=== PATIENT | male | born 1975 | race Caucasian/White ===

== ENCOUNTER → 2018-07-14 09:24 | Outpatient (CLI) | payer OTHER, SELFPAY ==
--- NOTE | 2018-07-14 09:30 | RAD_ITS ---
STUDY: X-RAY - LEFT HIP REASON FOR EXAM: Male, 43 years old. Hip pain TECHNIQUE: 2 views of the hip. COMPARISON: None. FINDINGS: The sacroiliac and right hip joints are normal. There is narrowing of the superior compartment joint with buttressing of the femoral neck. No acute fractures RAD/HIP, UNI W/ Pelvis 2-3 Views IMPRESSION: Degenerative changes of the superior compartment of the left hip joint. No fractures Electronically Signed: Nicholas Chapman MD at 3:22 EST Tel , Service support ,
[2018-07-14 10:41] LABS: Absolute Lymphocyte Count 1.03 X10^3/ul (0.83-4.51); Basophil# 0.02 X10^3/uL; Basophil% 0.4 % (0-1); Eosinophil# 0.04 X10^3/uL; Eosinophils% 0.7 % (0-5); Hematocrit 48.1 % (40-54); Hemoglobin 16.1 g/dl (13.0-16.5); Lymphocyte # 1.03 X10^3/ul (4.0); Lymphocyte % 18.9 % (19-41); Mean Corp Hgb Conc 33.5 g/gl (32-36); Mean Corpuscular Hgb 31.6 pg (27.0-32.0); Mean Corpuscular Volume 94.5 fL (80-94); Mean Platelet Vol. 9.5 fl (6.2-12.0); Monocyte% 7.3 % (0-10); Neutrophil # 3.96 X10^3/uL (2.7-7.7); Neutrophil % 72.5 % (47-70); Platelet Count 229 K/mm3 (150-450); RBC Distribution Width CV 13.1 % (11.6-14.6); RBC Distribution Width SD 45.6 fl (35.1-43.9); Red Blood Count 5.09 M/mm3 (4.6-6.2); White Blood Count 5.5 K/mm3 (4.4-11.0)
[2018-07-14 10:42] LABS: POSITIVE COUNT NO; POSITIVE DIFFERENTIAL NO; POSITIVE MORPHOLOGY NO
[2018-07-14 11:27] LABS: ALB/GLOB Ratio 1.2 RATIO (0.9-2.4); AST(SGOT) 16 U/L (15-37); Alanine Aminotransfer ALT/SGPT 25 U/L (16-61); Albumin, Serum 4.3 g/dL (3.2-5.0); Alkaline Phosphatase 66 U/L (45-117); BUN 9 mg/dL (7-18); BUN/Creat Ratio 9.6 RATIO (10-20); Calcium,Total 9.2 mg/dL (8.5-10.1); Cholesterol 190 mg/dL (200); Creatinine, Serum 0.94 mg/dL (0.70-1.30); EST Glomerular Filtration Rate 92 mL/min (>60); Est Glom Filt Rate - Afr Amer 111 mL/min (>60); Globulin 3.6 g/dL (2.2-4.2); Glucose 77 mg/dL (74-106); Protein, Total 7.9 g/dL (6.4-8.2); Triglycerides 83 mg/dL
[2018-07-14 11:28] LABS: Anion Gap 8 (5-15); Chloride 106 mmol/L (98-107); High Density Lipoprotein 62 mg/dL; Potassium 4.1 mmol/L (3.5-5.1); Sodium Level 139 mmol/L (136-145); Very Low Density Lipoprotein 17 mg/dL (5-40)
[2018-07-17 09:06] LABS: Testosterone, Free 6.76 ng/dL (5.00-21.00)
[2018-07-17 11:05] LABS: Testosterone, % Free 1.75 % (1.50-4.20); Testosterone, Total 386 ng/dL (264-916)
--- OUTSIDE RECORDS SUMMARY | 2018-09-17 16:33 | XMS RPT_ITS ---
:1975 Author Organization OHIP Care Team Providers Name Role Phone Nelson, Burak Attending Unavailable Burak Damon Referring Unavailable Burak Damon Primary Care Unavailable PROBLEMS PROBLEMS DATE TYPE CONDITION / CODE ATTENDING STATUS SOURCE 07/18/2018 Unknown M25.552 - Pain Bruak Damon Active [place] in left hip / Community M25.552(ICD-10) Hospital Repository PROCEDURES PROCEDURES No Procedure Records FoundRESULTS RESULTS CBC W/DIFF, AUTOMATED Collected: 07/14/2018 Status: F Source: NATALIA 9:32 AM [facility] REPOSITORY TYPE CODE TESTS RESULT OUT OF RANGE REFERENCE UNITS LAB L100.1000 4.4-11.0 K/mm3 Normal WBC 5.5 LAB L100.1200 4.6-6.2 M/mm3 Normal RBC 5.09 LAB L100.1300 13.0-16.5 g/dl Normal HGB 16.1 LAB L100.1400 40-54 % Normal HCT 48.1 LAB L100.1500 80-94 fL High MCV 94.5 LAB L100.1600 27.0-32.0 pg Normal MCH 31.6 LAB L100.1700 32-36 g/gl Normal MCHC 33.5 LAB L100.1810 11.6-14.6 % Normal RDW CV 13.1 LAB L100.1820 35.1-43.9 fl High RDW SD 45.6 LAB L100.1900 150-450 K/mm3 Normal PLT 229 LAB L100.2000 6.2-12.0 fl Normal MPV 9.5 LAB L100.2100 47-70 % High NEUT% 72.5 LAB L100.2200 19-41 % Low LY% 18.9 LAB L100.2300 0-10 % Normal MONO% 7.3 LAB L100.2400 0-5 % Normal EO% 0.7 LAB L100.2500 0-1 % Normal BASO% 0.4 LAB L100.2550 0.0-0.9 % Normal IM GRAN % 0.200 Result Comment: IG% - Immature Granulocytes (promyelocytes, myelocytes and metamyelocytes) > 1% indicates that a LEFT SHIFT is Present. LAB L100.2620 2.0-7.7 X10 3/uL Normal Absolute Neut 4.0 LAB L100.2720 0.83-4.51 X10 3/ul Normal Absolute Lymph 1.03 Performed By: #### L100.0100 #### [facility] [address] [place], [place], [address] COMPREHENSIVE METABOLIC Collected: 07/14/2018 Status: F Source: [place] 9:32 AM [facility] REPOSITORY TYPE CODE TESTS RESULT OUT OF RANGE REFERENCE UNITS LAB L501.0100 74-106 mg/dL Normal GLU 77 Result Comment: Please note revised GLUCOSE reference range effective 2017. LAB L501.1000 7-18 mg/dL Normal BUN 9 LAB L501.1100 0.70-1.30 mg/dL Normal CREAT,SERUM 0.94 Result Comment: The validity of the calculated GFR AND GFRAA in patients over 70 years has not been determined. Clinical correlation is essential. LAB L501.1110 >60 mL/min Normal EST GFR 92 Result Comment: Non- GFR Calc LAB L501.1115 >60 mL/min Normal EST GFR - AA 111 Result Comment: GFR Calc LAB L501.1300 10-20 RATIO Low BUN/CRE 9.6 LAB L501.1500 6.4-8.2 g/dL Normal T PROT 7.9 LAB L501.1800 3.2-5.0 g/dL Normal ALB 4.3 LAB L501.1950 2.2-4.2 g/dL Normal GLOB 3.6 LAB L501.2000 0.9-2.4 RATIO Normal A/G 1.2 LAB L501.2200 8.5-10.1 mg/dL Normal CA 9.2 LAB L501.4100 15-37 U/L Normal AST 16 LAB L501.4305 45-117 U/L Normal ALK P 66 LAB L501.4405 16-61 U/L Normal ALT 25 LAB L501.4600 0.20-1.00 mg/dL Normal T BILI 0.40 LAB L501.5300 136-145 mmol/L Normal NA 139 LAB L501.5600 3.5-5.1 mmol/L Normal K 4.1 LAB L501.5900 98-107 mmol/L Normal CL 106 LAB L501.6100 21.0-32.0 mmol/L Normal CO2 25.0 LAB L501.6200 5-15 Normal GAP 8 Performed By: #### L500.4050, L500.4100 #### [facility] [address] [place], [place], [id number] LIPID PROFILE Collected: 07/14/2018 Status: F Source: [place] 9:32 AM [facility] REPOSITORY TYPE CODE TESTS RESULT OUT OF RANGE REFERENCE UNITS LAB L501.4900 200 mg/dL Normal CHOL 190 Result Comment: <200 mg/dL Desirable 200-240 mg/dL Borderline >240 mg/dL High Risk LAB L501.5000 mg/dL Normal TRIG 83 Result Comment: The drugs N-Acetylcysteine and Metamizole may falsely depress this assay. Serum Triglycerides Reference Interval Normal <150 mg/dL Borderline high 150 - 199 mg/dL High 200 - 499 mg/dL Very High > or = 500 mg/dL LAB L501.6400 mg/dL Normal HDL 62 Result Comment: The drugs N-Acetylcysteine and Metamizole may falsely depress this assay. Reference Range HDL <40 mg/dL Low HDL Cholesterol HDL >or= 60 mg/dL High HDL Cholesterol LAB L501.6500 0-130 mg/dL Normal LDL 111 LAB L501.6600 5-40 mg/dL Normal VLDL 17 Performed By: #### L500.4050, L500.4100 #### [facility] [address] [place], [place], [id number] TESTOSTERONE, TOTAL / Collected: 07/14/2018 Status: F Source: NATALIA FREE 9:32 AM [facility] REPOSITORY Order Comment: Has Patient had X-rays with Contrast this admission? N TYPE CODE TESTS RESULT OUT OF RANGE REFERENCE UNITS LAB L3100.5320 264-916 ng/dL Normal 386 TESTOSTER,TO ASHLEY Result Comment: Adult male reference interval is based on a population of healthy nonobese males (BMI <30) between 19 and 39 years old. Roldan et.al. JCEM 2017,102;6109-6944. PMID: [id number]. LAB L3100.5340 5.00-21.00 ng/dL TESTOSTER,FREE Normal 6.76 LAB L3100.5360 1.50-4.20 % TESTOSTER %FREE Normal 1.75 Result Comment: Performed at: - [facility] [address] [id number] Panel Beater: Osmani Shah PhD, Phone: [phone] Performed at: - [facility] [address] [id number] Panel Beater: Deedee Beckett MD, Phone: [phone] Performed By: #### L3100.5310 #### [facility] (refer to report for specific site) refer to report for address and phone number HIP, UNI W/ PELVIS Observed: 07/14/2018 Status: F Source: NATALIA 2-3 VIEWS 9:30 AM [facility] REPOSITORY [facility] [address] [place] [id number] HIP, UNI W/ Pelvis 2-3 Views MR#: [id number] Acct: [id number] Name: NIRU GUZMAN Rep #: [id number] : 1975 M 43 From: Nicholas Chapman MD PCP: Burak Damon DO Status: REG CLI Study: HIP, UNI W/ Pelvis 2-3 Views Date of Exam: 07/14/18 Exam# [id number] Ordering Dr: Burak Damon DO STUDY: X-RAY - LEFT HIP REASON FOR EXAM: Male, 43 years old. Hip pain TECHNIQUE: 2 views of the hip. COMPARISON: None. FINDINGS: The sacroiliac and right hip joints are normal. There is narrowing of the superior compartment joint with buttressing of the femoral neck. No acute fractures RAD/HIP, UNI W/ Pelvis 2-3 Views IMPRESSION: Degenerative changes of the superior compartment of the left hip joint. 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 ALLERGIES ALLERGIES No Allergies Records FoundENCOUNTERS ENCOUNTERS ADMIT/DISCHARGE ACCOUNT ADMITTING ENCOUNTER LOCATION SOURCE NUMBER CLASS 07/14/2018 [id number] Ambulatory Natalia Natalia 7 [facility] ing:MTLAB Repository PAYERS PAYERS ENCOUNTER GUARANTOR PAYER SUBSCRIBER SOURCE 07/14/2018 NIRU SCHWARTZ Primary Insurance:F F [facility] [address] GU[address] [facility]: [facility] [id number] Number: Repository [phone]: [phone] [phone] () Date:[id number] [address], [place] [address]OL: CHECK WEBSITE 07/14/2018 Secondary NOT GIVENUNK Natalia Insurance:SELF PAY [facility] Number: Effective Repository Date:2018-07-14
== END ==
PROVIDERS: Family Provider Family Medicine; PCP Family Medicine; Referring Provider Family Medicine; Visit Provider Family Medicine
DX: M25.552 Pain in left hip (principal); I10 Essential (primary) hypertension; R79.89 Other specified abnormal findings of blood chemistry; K21.9 Gastro-esophageal reflux disease without esophagitis
CPT/HCPCS: 36415; 73502; 80053; 80061; 84402; 84403; 85025

== ENCOUNTER → 2019-08-23 06:36 | Outpatient (CLI) | payer OTHER, SELFPAY ==
[2019-08-23 07:37] LABS: Absolute Lymphocyte Count 0.95 X10^3/uL (0.83-4.51); Absolute Neutrophil Count 2.6 X10^3/uL (2.0-7.7); Basophil# 0.03 X10^3/uL; Basophil% 0.7 % (0-1); Eosinophil# 0.05 X10^3/uL; Eosinophils% 1.2 % (0-5); Hematocrit 48.2 % (40-54); Hemoglobin 16.5 g/dL (13.0-16.5); Lymphocyte # 0.95 X10^3/ul (4.0); Lymphocyte % 23.7 % (19-41); Mean Corp Hgb Conc 34.2 g/dL (32-36); Mean Corpuscular Hgb 31.9 pg (27.0-32.0); Mean Corpuscular Volume 93.1 fL (80-94); Monocyte# 0.41 X10^3/uL; Monocyte% 10.2 % (0-10); NRBC Flagged by Analyzer 0 % (0-5); Neutrophil # 2.56 X10^3/uL (2.7-7.7); Platelet Count 201 K/mm3 (150-450); RBC Distribution Width CV 12.1 % (11.6-14.6); RBC Distribution Width SD 41.7 fl (35.1-43.9); Red Blood Count 5.18 M/mm3 (4.6-6.2)
[2019-08-23 08:01] LABS: AST(SGOT) 28 U/L (15-37); Alanine Aminotransfer ALT/SGPT 58 U/L (16-61); Albumin, Serum 3.8 g/dL (3.2-5.0); Alkaline Phosphatase 66 U/L (45-117); Anion Gap 5 (5-15); BUN 12 mg/dL (7-18); BUN/Creat Ratio 11.7 RATIO (10-20); Calcium,Total 9.4 mg/dL (8.5-10.1); Chloride 108 mmol/L (98-107); Cholesterol 227 mg/dL (200); Creatinine, Serum 1.03 mg/dL (0.70-1.30); EST Glomerular Filtration Rate 83 mL/min (>60); Est Glom Filt Rate - Afr Amer 100 mL/min (>60); Globulin 3.8 g/dL (2.2-4.2); Glucose 87 mg/dL (74-106); High Density Lipoprotein 55 mg/dL; Potassium 4.1 mmol/L (3.5-5.1); Protein, Total 7.6 g/dL (6.4-8.2); Sodium Level 142 mmol/L (136-145); Triglycerides 92 mg/dL; Very Low Density Lipoprotein 18 mg/dL (5-40)
[2019-08-26 12:29] LABS: Testosterone, Free 14.87 ng/dL (5.00-21.00)
[2019-08-27 13:25] LABS: Testosterone, % Free 3.68 % (1.50-4.20); Testosterone, Total 404 ng/dL (264-916)
== END ==
PROVIDERS: PCP Family Medicine; Referring Provider Family Medicine; Visit Provider Family Medicine
DX: Z00.00 Encounter for general adult medical examination without abnormal findings (principal); R79.89 Other specified abnormal findings of blood chemistry
CPT/HCPCS: 36415; 80053; 80061; 84402; 84403; 85025

== ENCOUNTER → 2019-11-16 09:09 | Outpatient (CLI) | payer OTHER, SELFPAY ==
--- NOTE | 2019-11-16 09:15 | RAD_ITS ---
STUDY: X-RAY - PELVIS AND BILATERAL HIPS REASON FOR EXAM: Male, 44 years old. Bilat hip pain, right worse than left TECHNIQUE: AP view of the pelvis.? 2 views of the right hip, and 2 views of the left hip were obtained. COMPARISON: 07/14/2018 FINDINGS: There is a non-specific bowel gas pattern. Normal visualized soft tissue structures. Normal bilateral iliac wings, sacroiliac joints and visualized sacrum. Normal bilateral superior and inferior pubic rami. Normal pubic symphysis. Normal bilateral ischial tuberosities. Normal visualized right femoral head. Normal right acetabulum. There is mild articular joint space narrowing of the right hip. Normal visualized left femoral head. Normal left acetabulum. There is mild articular joint space narrowing of the left hip. RAD/Hips B/L min 2 views w/ Pelvis IMPRESSION: Mild bilateral hip joint arthrosis Electronically Signed: Rolf Bautista MD at 17:20 EDT , Service support ,
== END ==
PROVIDERS: PCP Family Medicine; Referring Provider Family Medicine; Visit Provider Family Medicine
DX: M16.0 Bilateral primary osteoarthritis of hip (principal); M25.551 Pain in right hip; M25.552 Pain in left hip
CPT/HCPCS: 73521

== ENCOUNTER 2019-11-28 05:49 | Day surgery (SDC) | payer OTHER, SELFPAY ==
[2019-11-28 06:23] VITALS: BP 145/102; PULSE 80; RESP 16; TEMP 36.9; O2SAT 95; BMI 37.8
[2019-11-28] MEDS: Lactated Ringers 1,000 ML 100 ML IV (06:36)
[2019-11-28] MEDS: LORazepam 2 MG/ML Syringe 0.5 MG IV (07:09)
--- NOTE | 2019-11-28 07:30 | RAD_ITS ---
STUDY: X-RAY - PELVIS AND RIGHT HIP REASON FOR EXAM: Male, 44 years old. Right hip injection done in OR TECHNIQUE: 2 coned-down views of the pelvis and hip. COMPARISON: None. FINDINGS: Intraoperative images provided for right hip injection. RAD/Fluoro Guided Needle Placement IMPRESSION: Intraoperative imaging provided for right hip injection. Electronically Signed: Marvin Lopez, at 12:24 EDT , Service support ,
[2019-11-28] MEDS: Bupivacaine Mpf 0.5% 30 ML VIAL (07:33)
[2019-11-28] MEDS: Triamcinolone Acetonide 40 MG/ML Vial (07:33)
--- NOTE | 2019-11-28 07:38 | OP.PCM_ITS ---
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 3 cc of 0.5% Marcaine. 3 cc of 1% lidocaine for local Estimated Blood Loss (mL): 0 Fluids Replaced: 0 Description of Procedure: Patient was brought back to the operating room after marking his right hip in the preoperative area. The pulse was palpated. Fluoroscopy was used to localize the joint and area for needle entry. This area was marked. Timeout was called upon agreed upon the side, the site, the procedure to be performed, patient identity and antibiotics given. At this time the area was prepped in a sterile fashion. Sterile gloves were donned. The previously marked area for needle entry was anesthetized using 1% lidocaine spinal needle was used and directed using live fluoroscopy into the joint. Dye was injected into the joint to verify we were in the joint. Once you have we were in the joint 2 cc of Kenalog and 3 mL of 0.5% Marcaine were injected into the joint. Patient t olerated the procedure well. Live x-ray was used to verify that I had further displaced. Needle was removed. Pressure was held and Band-Aid was placed. Patient was then transferred back to the PACU for recovery. Postoperative plan: Weightbearing as tolerated, activity as tolerated no restrictions. - Complications None - Admit VTE Documentation VTE Present on Admission: No VTE Pharm Prophylaxis ordered?: No Reason prophylaxis not ordered:: Treatment Not Indicated
[2019-11-28 08:17] VITALS: BP 135/98; PULSE 80; RESP 16; TEMP 37.2; O2SAT 95
== END 2019-11-28 08:18 | disposition home or self-care (01) ==
LOC: SDC 05:50 → AC 05:50
PROVIDERS: PCP Family Medicine; Referring Provider Specialist; Visit Provider Specialist
PROC: 3E0U3GC Introduction of Other Therapeutic Substance into Joints, Percutaneous Approach (ICD-10-PCS; CPT 20610; principal; 2019-11-28 07:25)
DX: M16.0 Bilateral primary osteoarthritis of hip (principal)
CPT/HCPCS: 20610; 76000; 77002; J7120

== ENCOUNTER 2020-03-05 07:28 | Day surgery (SDC) | payer OTHER, SELFPAY ==
--- NOTE | 2020-02-22 23:59 | PCM.HP.BLA ---
History and Physical History and Physical [facility] Patient Name: Marcelino Cordova : 1975 From: ANIBAL MENDEZ PA-C DATE OF SURGERY: 03/05/2020 SCHEDULED PROCEDURE: right total hip arthroplasty HISTORY OF PRESENT ILLNESS: Preoperative history and physical exam was performed on February 22, 2020. This is a 44-year-old male who has been having ongoing pain in the right hip since February 2018. Patient does complain of bilateral hip pain but his right is been worse in the left. Pain can reach 10/10 with activities. Pain is increased with stairs, driving, sitting, and walking. Patient's pain is been constant, dull, aching, sharp, stabbing. He has increased pain with activities of daily living including bathing/showering, getting dressed, housework, and leisure activities such as golf. He has fallen and tripped/stumbled secondary to the pain. He has tried rest, ice, elevation with no relief in symptoms. He has attempted a recent intra-articular corticosteroid injection on November 27, 2019 with no relief in symptoms. This only gave him 2 weeks of relief. He has tried home exercise plan with no relief. He has tried director medicare sales with no relief. He has attempted ylfd-[id number]-[id number] medications including Tylenol as well as Mobic with no relief in symptoms. He denies previous surgery on the bilateral hips. He has had to use a cane due to ambulatory pain. Patient states he has also gained weight secondary to do his decreased activity. Patient has medical history pertinent for gastroesophageal reflux disease, and hypertension. Currently denies any chest pain, shortness of breath, fevers chills, recent infections. We are obtaining surgical clearance from the primary care physician. After failing conservative measures and discussing treatment options with Dr. Walt Comer, the patient does wish to proceed with a right total hip arthroplasty. Dr. Burak Damon is his primary care physician and he had a recent EKG today. REVIEW OF SYSTEMS: ROS: Const: Denies anorexia, anxiety, change in appetite, fever and weight change,hard of hearing, and vision problems. CV: Denies chest pain, heart murmur, irregular heartbeat and peripheral vascular disease. Resp: Denies asthma, cough, pneumonia, sleep apnea, shortness of breath, tuberculosis and wheezing. GI: Denies constipation, diarrhea, heartburn, nausea, bloody stools and vomiting, and difficulty swallowing. : Denies incontinence. Musculo: Denies leg swelling, trouble walking and weakness and limp. Skin: Reports tattoo, but denies Raynaud's and history of shingles. Neuro: Denies ambulatory dysfunction, dizziness, numbness/tingling and tremor. Psych: Denies anxiety, depression, insomnia, mental illness and stress. Peter/Lymph: Denies anemia, bleeding/bruising tendency and past transfusion. Reviewed, no changes. PAST MEDICAL HISTORY: Advance Care Plan: No Advance Directives Effective Date: 11/23/2019 PMH: Medical Problems: High Blood Pressure, GERD Accidents: Fracture - Fingers from sports Sports Related Injury - Sprained ankles & broken fingers Surgical Hx: Osteochondroma - 2002 [facility] Arthroscopy - (10/17/2006) R KNEE [facility] MSK Vasectomy Anesthesia Complications: None Assistive Devices: None Reviewed and updated. SOCIAL HISTORY: SH: Marital: .Occupation: [employer].Work Status: Currently Working.Hand Dominance: Right-handed. Personal Habits: Cigarette Use: Never.Smokeless Tobacco: Never Used Smokeless Tobacco.E-Cigarette Use: Never used.Alcohol: Weekly use.Drug Use: Denies Use.Enjoy Exercising: Daily. Reviewed and updated. VITALS: Ht: 69 Wt: 243lb Wt k.225 BMI: 35.9 BP: 137/84 Pulse: 104 Resp: 14 T: 97.3 T: 36.3C ALLERGIES: PCN Penicillin MEDICATIONS: Oxycodone HCL 5 mg 1-2 tab by mouth every 4 hours, Promethazine HCL 12.5 mg 1-2 tablets by mouth every 6 hours, Transderm Scop (1.5 MG) 1 MG/3Days 1 patch behind ear every 3 days, Omeprazole Magnesium 20.6 (20 Base) MG 1 capsule by mouth daily, Meloxicam 15 mg Take 1 tablet by mouth once daily, Lisinopril 20 mg Take 1 tab by mouth once daily, Amlodipine Besylate 5 mg One tablet by mouth daily, Advil 200 mg prn PRE-OP EXAM: General appearance:NORMAL Other: Eyes: Conjunctivae and lids: NORMAL Pupils: ERR Ears, Nose, Mouth, and Throat: NORMAL Other: Inspection of lips, teeth and gums: NORMAL Other: Neck: Examination of neck: no masses noted. Respiratory: Assessment of respiratory effort: NORMAL Other: Auscultation of lungs: clear to auscultation no wheezes, rhonchi or rales. Cardiovascular: Auscultation of heart: regular rate and rhythm, no murmurs, gallops or rubs. Exam of carotid arteries: NORMAL Other: Gastrointestinal: Exam of abdomen: soft, nontender, nondistended bowel sounds present. PHYSICAL EXAMINATION: Patient walks with an antalgic gait. There is no tenderness to palpation of the greater trochanteric region. Right hip is cool to touch without erythema or signs of infection. Flexion 95, internal rotation 7, external rotation 25. 5/5 strength. Increased pain with range of motion of the hip. Patient has obligatory external rotation with flexion bilaterally. Left hip range of motion 100 flexion, internal rotation 12, external rotation 15. Sensation intact to light touch. IMAGING STUDIES: X-rays were obtained at today's visit including 3 views of the right hip reveals no acute findings for fracture or dislocation. Right hip patient does have subchondral cyst in the lateral weightbearing portion of the acetabulum. In addition he has a large os acetabula ossified fragment. He has bilateral cam lesions. He has joint space narrowing with subchondral sclerosis and osteophyte formation consistent with moderate to severe osteoarthritis and bilateral hips. IMPRESSION: 1. Severe right hip osteoarthritis 2. Severe left hip osteoarthritis 3. Hypertension 4. Gastroesophageal reflux disease PLAN: Dr. Walt Comer did discuss and review with the patient all treatment options including surgical versus nonsurgical options. Patient does wish to proceed with the above-stated procedure. Potential risks, benefits, and complications of the procedure were discussed in detail including but not limited to , infection, nerve and blood vessel damage, persistent pain, numbness, tingling, paresthesias, blood clot, pulmonary embolism, and requirement for possible further surgery. The patient expressed full understanding and has no further questions for the doctor. Patient does agree to proceed with the above-stated procedure and has signed the surgery consent form. We discussed the current risks associated with COVID 19. This does include the risk of exposure while in the hospital. Patient was reassured local hospitals have low infection rates and are taking all necessary precautions to avoid exposure to patients. In addition, we discussed strategies that can be used to help limit exposure including those that limit the patient's time in the hospital. Also using strategies to limit the patient's need for continued inpatient services after being discharged from the hospital. Patient was notified that we will need to comply with any screening or testing the hospital wishes to perform or that surgery may be delayed for any positive results. This dictation was created using voice recognition software. Phonetic and/or grammatical errors may exist. ___ I have re-examined the patient. There are no clinical changes since date of exam. ___ See progress notes for changes. ___ Dictated on admission Date: Time: Signature:
[2020-02-27 11:06] LABS: Absolute Lymphocyte Count 0.89 X10^3/uL (0.83-4.51); Absolute Neutrophil Count 3.9 X10^3/uL (2.0-7.7); Basophil# 0.04 X10^3/uL; Basophil% 0.7 % (0-1); Eosinophil# 0.05 X10^3/uL; Eosinophils% 0.9 % (0-5); Hematocrit 48.1 % (40-54); Hemoglobin 16.3 g/dL (13.0-16.5); Lymphocyte # 0.89 X10^3/ul (4.0); Lymphocyte % 16.3 % (19-41); Mean Corp Hgb Conc 33.9 g/dL (32-36); Mean Corpuscular Volume 94.5 fL (80-94); Mean Platelet Vol. 8.8 fl (6.2-12.0); Monocyte# 0.53 X10^3/uL; Monocyte% 9.7 % (0-10); NRBC Flagged by Analyzer 0 % (0-5); Neutrophil # 3.94 X10^3/uL (2.7-7.7); Neutrophil % 72.2 % (47-70); Platelet Count 226 K/mm3 (150-450); RBC Distribution Width CV 12.5 % (11.6-14.6); RBC Distribution Width SD 43.5 fl (35.1-43.9); Red Blood Count 5.09 M/mm3 (4.6-6.2); White Blood Count 5.5 K/mm3 (4.4-11.0)
[2020-02-27 11:18] LABS: Magnesium 2.2 mg/dL (1.6-2.6)
[2020-02-27 11:37] LABS: Anion Gap 2 (5-15); BUN 9 mg/dL (7-18); BUN/Creat Ratio 9.3 RATIO (10-20); Calcium,Total 9.7 mg/dL (8.5-10.1); Chloride 105 mmol/L (98-107); Creatinine, Serum 0.97 mg/dL (0.70-1.30); EST Glomerular Filtration Rate 88 mL/min (>60); Est Glom Filt Rate - Afr Amer 107 mL/min (>60); Glucose 91 mg/dL (74-106); Potassium 4.5 mmol/L (3.5-5.1); Sodium Level 137 mmol/L (136-145)
[2020-03-04 09:50] LABS: Albumin, Serum 3.8 g/dL (3.2-5.0)
[2020-03-05] VITALS (8 sets, daily range): BP systolic 99–149; BP diastolic 61–93; PULSE 60–95; RESP 16–18; TEMP 36.6–37.8; O2SAT 96–100; BMI 35.6
--- NOTE | 2020-03-05 | HIP_PTH ---
PATIENT: NIRU GUZMAN LOC: [facility] U#:[id number] AGE/SX: 44/M ROOM: RE03/05/[address]: Dr. Walt Comer MD : 1975 BED: DIS: 03/05/2020 SPEC #: [id number] RECD: 03/05/20 13:55 STATUS: HENOK DARIEL #: [id number] ZAYDA: 03/05/20 00:[address]: Walt Comer DEPT: SURGICAL PATHOLOGY RECD BY: Rico Salcedo ENTERED: 03/05/20 13:55 SP TYPE: TOTAL HIP OTHR DR: MD Dr. Burak Powell DO Tissues: A - Synovial tissue of joint, NOS B - Hip, NOS Procedures: Decalcification bone/plaque Surgery Specimen Level IV HEADER OPERATION: ERAS, total hip anterior approach PRE-OP DIAGNOSIS: Severe right hip osteoarthritis TISSUE SUBMITTED: A - Right hip synovial lining, B - Right femoral head MICROSCOPIC DIAGNOSIS A. Right hip synovial lining: Fragments of dense fibroconnective tissue, cartilaginous tissue and reactive synovial tissue. B. Right femoral head: Femoral head with severe degenerative osteoarthritic changes and focal changes consistent with avascular necrosis. LEONIE:saurabh 03/10/20 MICROSCOPIC DESCRIPTION Slides are reviewed. GROSS DESCRIPTION A - Received in fixative is one container labeled with the patient's name and designated right hip synovial lining. The specimen consists of multiple irregular fragments of red-lama soft tissue that in aggregate measure 2 x 1 x 0.2 cm. The specimen is totally submitted in one cassette. B - Received is one container labeled with the patient's name and designated right femoral head. The specimen consists of three irregular fragment of bone ranging in size from 3.5 to 5 cm. The femoral head measures 5 x 5 x 4 cm and displays avulsion of articular surface. This area of avulsion measures 4 x 4 cm in greatest dimension. There is focal bone erosion identified. Residential Appliance Repair Technician section is submitted in one cassette after decalcification. / AM:saurabh 03/05/20 TC:5 CPT: 15539 x2, [id number]
[2020-03-05] MEDS: Lactated Ringers 1,000 ML 999 ML IV ×2 (08:14→11:35)
[2020-03-05] MEDS: Acetaminophen 500 MG Tablet 1000 MG PO ×2 (08:18→14:10)
[2020-03-05] MEDS: Gabapentin 600 MG Tablet PO (08:19)
[2020-03-05] MEDS: Celecoxib 200 MG Capsule 400 MG PO (08:19)
[2020-03-05 08:25] LABS: Bedside Glucose 103 mg/dL (70-110)
[2020-03-05] MEDS: Cefazolin 2 GM in 0.9% Normal Saline 100 ML IV (09:26)
[2020-03-05] MEDS: dexAMETHasone 10 MG/ML Vial IV (09:26)
--- NOTE | 2020-03-05 10:09 | RAD_ITS ---
STUDY: X-RAY - PELVIS AND RIGHT HIP REASON FOR EXAM: Male, 44 years old. INTRA-OPERATIVE RIGHT HIP -- 6 FLUORO IMAGES, 10.3 FLUORO SEC, 1.82mGy TECHNIQUE: 1 views of the pelvis and hip. COMPARISON: None. FINDINGS: Intraoperative imaging provided for right total hip replacement. RAD/Hip 1 view with Pelvis IMPRESSION: Intraoperative imaging provided for right total hip placement. Electronically Signed: Marvin Lopez, at 13:16 EDT , Service support ,
--- NOTE | 2020-03-05 10:43 | PCM.OPRPT ---
Report of Operation Date of Procedure: 03/05/20 Pre-Operative Diagnosis: Right hip primary osteoarthritis Post-Operative Diagnosis: Right hip avascular necrosis Surgery/Procedure Performed:: Right direct anterior minimally invasive total hip replacement Description of Surgical Findings:: Stable hip with equal leg lengths. Patient had fragmented femoral head consistent with avascular necrosis intraoperatively. maintenance technician 2nd shift: Benja Pollard Type of Anesthesia:: Spinal Anesthesiologist: Aydin Dickson Special Medications: 2 g Ancef, 1 g TXA at incision, 1 g TXA closure, 10 mg Decadron, joint cocktail (5 mg Duramorph, 30 mL of 0.5% Ropivicaine, 1000 units of epinephrine, 30 mg of Toradol) Specimen's removed: Femoral head Estimated Blood Loss (mL): 600 Fluids Replaced: 1400 mL crystalloid Description of Procedure: Components used: 1. Accolade 2 [place] femoral stem size 6 127? 2. [place] trident 2 acetabular shell size 52 mm 3. [place] X3 polyethylene E 4. Ariel Biolox delta 36mm, 0mm femoral head Brief history operative indications: 44 yo m who failed conservative measures for their hip osteoarthritis. X-rays were consistent with osteoarthritis including joint space narrowing, osteophyte formation and subchondral cysts. Total hip replacement was discussed with the patient with risks and benefits including but not limited to blood loss, DVTs, PEs, neurovascular damage, dislocation, general risks of anesthesia including loss of life. Patient demonstrated an understanding medical clearance is obtained the patient was consented for surgery. Procedure: On the date of procedure the patient's R hip was marked in the preoperative area. Patient was then taken back to the operating room where anesthesia assumed control of the C-spine and airway and administered anesthetic. Patient was transferred to the operating table and placed in the supine position. The hips were placed at the break of the bed and a sacral bump was placed. The R lower extremity was then prepped out in a sterile fashion using chlorhexidine while the surgeon scrubbed. The PA was vital in the positioning of the patient. Upon reentering the room the R lower extremity was draped in the standard orthopedic fashion and the incision was marked. A timeout was called and everyone agreed upon the side, the site, the procedure be performed, antibody given, and patient's identity. At this time incision was made through skin, subcutaneous tissue, and fat down to fascia. The fascia was then incised and the TFL was retracted laterally. A retractor was placed on the lateral border of the femoral neck. Attention was directed to the inferior portion of the approach and all crossing vessels were identified and appropriately coagulated. A retractor was then placed on the medial portion of the femoral neck. The anterior capsule was then cleared of all soft tissue and then H shaped capsulotomy was made. The retractors were then placed inside the capsule. The femoral neck was identified and a cleanup cut was made. At this time a power corkscrew was used to remove the femoral head. Upon removal of femoral head it was clearly obvious that the patient had fragmentation of the weightbearing surface consistent with avascular necrosis which had most likely progressed from his initial office x-rays. Attention was then turned toward the acetabulum where the soft tissues were appropriately retracted and the acetabulum was sequentially reamed to 52 mm. A 52 mm cup was then selected and impacted into place. Acetabular liner was impacted into place and locking mechanism was verified. The position of the acetabular cup was then verified under live fluoroscopy. Attention was then turned to the femur. Soft tissue releases on the medial and lateral femoral neck were appropriately done, the leg was externally rotated and lateralized. A Meza retractor was placed medially and proximally to the greater trochanter this allowed appropriate visualization and exposure of the femoral canal. Rongeour was then used to remove excess lateral bone. A canal finder and entry broach were used to open the proximal canal. Once we verified we were down the femoral canal we subsequently broached up to a size 6 femur. The appropriate neck was placed in the previously selected head was trialed with a 0 mm neck. Traction was pulled and the hip was reduced with internal rotation. Once it was appropriately reduced and stability was checked. There was minimal shuck, equal leg lengths and appropriate stability with hyperextension and external rotation as well as with 90? flexion and internal rotation. Fluoroscopy was then also used to verify the position of the components and leg lengths using the contralateral side for comparison. The trial components were then dislocated the proximal femur was again exposed and the components were removed from the wound. The final components were verified and opened. The wound was copiously irrigated out with normal saline. The acetabulum was checked for any residual debris. The final components were placed and impacted. Traction and internal rotation were again used to reduce the hip. After adequate reduction the hip remained stable with appropriate leg lengths. The final components were once again checked with live fluoroscopy and were found to be satisfactory. The wound was then copiously irrigated with normal saline once more, and hemostasis was obtained. Closure was then done using #1 Vicryl runner to close the fascia. A 2-0 vicryl interuppted sutures were used to close the subcutaneous skin. A 3-0 Monocryl and Steri-Strips were used for final skin closure. A Silverlon dressing was placed. Patient was awakened by anesthesia and transferred to [facility]. Patient was then transferred to the PACU for recovery. Postoperative plan: Patient will get 24 hours postop antibiotics. Patient will get in-house physical therapy and will be weight-bear as tolerated. Patient will follow up in office in 2 weeks for a wound check and x-rays. Aspirin 81 mg twice daily - Complications NONE - Admit VTE Documentation VTE Present on Admission: No VTE Mechan Device Prophylaxis: SCD's, Thigh High ARPIT Hose VTE Pharm Prophylaxis ordered?: Yes
--- NOTE | 2020-03-05 11:45 | RAD_ITS ---
STUDY: X-RAY - PELVIS AND RIGHT HIP REASON FOR EXAM: Postop right hip arthroplasty. TECHNIQUE: 2 views of the pelvis and hip. COMPARISON: Intraoperative images obtained the same day and radiographs 11/16/2019. FINDINGS: There is postoperative gas in the soft tissues. Normal visualized bilateral iliac wings, visualized sacroiliac joints and visualized sacrum. Normal bilateral superior and inferior pubic rami. Normal pubic symphysis. Normal bilateral ischial tuberosities. There is a right hip arthroplasty without evidence of complication. RAD/Hip Min 2 Views (Portable) IMPRESSION: Uncomplicated right hip arthroplasty. Electronically Signed: Jg Ivy MD at 13:53 EDT Tel , Service support ,
[2020-03-05] MEDS: Cefazolin 1 GM/50 ML BAG IV (12:59)
== END 2020-03-05 15:45 | disposition home or self-care (01) ==
LOC: SDC 07:28 → AC 07:29
PROVIDERS: Anesthesiology; PCP Family Medicine; Referring Provider Specialist; Visit Provider Specialist
PROC: (CPT 27284; principal; 2020-03-05 09:10)
DX: M87.051 Idiopathic aseptic necrosis of right femur (principal); M16.0 Bilateral primary osteoarthritis of hip; Z11.59 Encounter for screening for other viral diseases; I10 Essential (primary) hypertension; K21.9 Gastro-esophageal reflux disease without esophagitis; Z79.899 Other long term (current) drug therapy; F17.200 Nicotine dependence, unspecified, uncomplicated
CPT/HCPCS: 01214; 27130; 36415; 73501; 73502; 76000; 80048; 82040; 82962; 83735; 85025; 87081; 87635; 88305; 88311; 97161; 97166; C1776; C9803; J7120; U0003

== ENCOUNTER 2020-04-23 15:00 | Outpatient (RCR) | payer OTHER, SELFPAY ==
[2020-03-05 07:57] VITALS: BMI 35.6
--- NOTE | 2020-03-07 10:54 | HP.PTEVAL ---
Patient's Visit Information Tanna GUZMAN is a 44 year old M referred to Physical Therapy by Ravinder Andrade PA-C with a diagnosis of R DEDE. Date of Evaluation: 03/07/20 Physical Therapist: Darnell Rawls PT, ATC - Visit Plan Frequency: 2-3x /Week Duration: 4-6 Weeks Plan: R LE stretching and strengthening, balance and proprio, core strengthening, nustep, and HEP - Subjective DOS: 03/05/2020. Pt had a R DEDE performed. Pt reports he has had R hip pain for over a year. Pt notes he had L hip pain at first, but then the R hip became sore. Pt reports he had to ambulate with a cane prior to surgery. No tingling or numbness in R LE. Pt notes sig sleep difficulty at this time. 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 Pt reports his L hip will need to be done in the future. 0/10 pain at rest, 8/10 pain at worst. Pt has been given a HEP while at the hospital. - Pain R hip Pain Intensity (Out of 10): 0 Pain Intensity Range: 8 - Objective Neuro: B LE sensation is WNL to light touch. B patellar reflex= 2/3. ROM: R hip is limited in all planes. L LE is WNL. MMT: R hip is grossly 2/5 throughout. All other LE MMT 5/5 throughout. Gait: Pt is able to ambulate 340' until needing to rest secondary to pain - Goals Goal 1:: Decrease R hip pain x 50% to aid with sleep Goal Time Frame: 4-6 Weeks Goal 2:: Increase R hip strength x 1 grade to aid with stair negotiation Goal Time Frame: 4-6 Weeks Goal 3:: R hip ROM will equal L hip ROM to aid with IADL's Goal Time Frame: 4-6 Weeks Goal 4:: I with HEP Goal Time Frame: 4-6 Weeks - Rehabilitation Potential Physical Therapy Diagnosis: R LE weakness, pain, and limited ROM secondary to R DEDE Rehabilitation Potential: Good - Anticipated Interventions Patient/Client Instruction: Educate patient on: Condition, Plan of Care For the Purpose of:: To improve self management Therapeutic Exercise to Include: Strength training, Endurance training, Balance training, Flexibilty training, Gait and locomotor training, Dynamic Lumbar Stabilization For the Purpose of:: To decrease pain, To increase ROM, To improve muscle performance and motor function Cryotherapy (ice pack, ice massage): Yes For the Purpose of:: To decrease pain Thank you for the opportunity to evaluate your patient. For Medicare and Medicare HMO plans, please review the plan of care and approve it. It will need to be FAXED BACK to us at [phone] for Medicare purposes. For Medicare only, by signing this I certify the plan of care. Please let me know if there are questions or concerns regarding this plan of care. Physician Signature: Date:
--- NOTE | 2020-04-23 15:28 | HP.PTDCSUM ---
It has been my pleasure to treat A LANA GUZMAN referred by Ravinder Andrade PA-C, with the diagnosis of R DEDE for a total of 14 visit(s). Discharge Date: Please see the following information for a summary of their discharge status. Subjective: NO pain this date. Pt is ready for discharge R hip Pain Intensity (Out of 10): 0 % Improvement: 100 Objective/Function: R hip strength is 5/5. R hip ROM is = L hip ROM. R hip pain 0/10. Pt is I with HEP Goal 1:: Decrease R hip pain x 50% to aid with sleep Goal Progress: Goal Met Goal 2:: Increase R hip strength x 1 grade to aid with stair negotiation Goal Progress: Goal Met Goal 3:: R hip ROM will equal L hip ROM to aid with IADL's Goal Progress: Goal Met Goal 4:: I with HEP Goal Progress: Goal Met Plan: Discharge If there are questions or concerns regarding this patient's physical therapy, please feel free to call me at [phone]. Thank you for the referral of this patient. Sincerely, Darnell Rawls, PT, ATC
== END 2020-04-23 19:00 | disposition home or self-care (01) ==
LOC: PT 15:00
PROVIDERS: PCP Family Medicine; Visit Provider Physician Assistant Surgical
DX: M16.11 Unilateral primary osteoarthritis, right hip (principal); Z96.641 Presence of right artificial hip joint
CPT/HCPCS: 97110; 97161; 97164

== ENCOUNTER → 2020-05-23 09:19 | Outpatient (CLI) | payer OTHER, SELFPAY ==
[2020-03-05 07:57] VITALS: BMI 35.6
--- NOTE | 2020-05-23 09:22 | RAD_ITS ---
STUDY: X-RAY - PELVIS AND RIGHT HIP REASON FOR EXAM: Male, 44 years old. Right hip replacement follow-up. TECHNIQUE: 3 views of the pelvis and hip. COMPARISON: 03/05/2020 FINDINGS: There is a non-specific bowel gas pattern. Normal visualized soft tissue structures. Normal bilateral iliac wings, sacroiliac joints and visualized sacrum. Normal bilateral superior and inferior pubic rami. Normal pubic symphysis. Normal bilateral ischial tuberosities. Stable right total hip arthroplasty in anatomic alignment. No complications identified. Stable mild arthrosis of the left. RAD/Hip uni 4+ views with Pelvis IMPRESSION: Stable right total hip arthroplasty. Mild arthrosis of the left hip unchanged. Electronically Signed: Edwin Crisostomo MD at 12:09 EST , Service support ,
== END ==
PROVIDERS: PCP Family Medicine; Referring Provider Specialist; Visit Provider Specialist
DX: M16.11 Unilateral primary osteoarthritis, right hip (principal); Z96.641 Presence of right artificial hip joint; Z47.1 Aftercare following joint replacement surgery
CPT/HCPCS: 73503

== ENCOUNTER 2020-07-31 13:03 | Emergency (ER) | payer OTHER, SELFPAY ==
[2020-03-05 07:57] VITALS: BMI 35.6
[2020-07-31 13:04] VITALS: BP 150/105; PULSE 96; RESP 20; TEMP 36.7; O2SAT 98; BMI 38.2
--- NOTE | 2020-07-31 13:25 | RAD_ITS ---
STUDY: X-RAY - RIGHT HAND REASON FOR EXAM: Right hand injury, swelling. TECHNIQUE: 3 view(s) of the hand. COMPARISON: None. FINDINGS: Normal radiocarpal articulation. Normal distal radioulnar joint. There is a small cyst in the lunate. Normal carpal articulations Normal carpometacarpal articulation of the thumb. Normal second through fifth carpometacarpal joints. Normal metacarpi. Normal metacarpophalangeal joint of the thumb. Normal interphalangeal joint of the thumb. Normal proximal and distal phalanges of the thumb. Normal metacarpophalangeal joints of the second through fifth fingers. There is a small osseous fragment at the base of the fourth middle phalanx, likely from remote injury since the fragment appears corticated. There is a nondisplaced fracture of the ungual tuft of the fourth digit. There is a subtle nondisplaced fracture of the ungual tuft of the fifth digit There is soft tissue swelling of the distal fourth and fifth fingers. RAD/Hand Min 3 Views IMPRESSION: Nondisplaced fractures of the fourth and fifth distal phalanges. Small corticated osseous fragment at the base of the fourth middle phalanx, likely from remote injury. Electronically Signed: Jg Ivy MD at 13:43 EST Tel , Service support ,
--- NOTE | 2020-07-31 13:54 | ED.VIS.GEN ---
History of Present Illness Chief Complaint: Laceration Narrative: Patient presents with fourth and fifth digit pain on his right hand after getting his hand stuck in an automotive fan. He has no other injury. Pain is mild to moderate. He also has some abrasions over the fifth distal phalanx. Past medical history: Noncontributory Medications: None Social history: Noncontributory Review of systems: Musculoskeletal: Finger pain as in HPI Skin: Abrasion as in HPI Neurological: No weakness or paresthesias Hematologic: Denies: Easy bruising, Easy bleeding Physical exam General: Well nourished, Well developed, No Acute Distress Head: Normocephalic, Atraumatic Neck: No C-spine tenderness Cardiovascular: Normal pulses Respiratory: No distress Back: Nontender, Normal Inspection. Extremities: Patient has some small abrasions over the fifth phalanx region mostly distal. He has tenderness over the distal part of both the fourth and fifth phalanx but he does not have subungual hematomas. Skin: As above Neurological: Normal strength and sensation Past Medical History - Allergies and Home Meds Allergies/Adverse Reactions: Allergies Penicillins Allergy (Verified 07/31/20 13:03) Swelling oxycodone [From Percocet] Adverse Reaction (Verified 07/31/20 13:03) Nausea Primary Care Physician: Burak Damon DO [Primary Care Provider] - Smoking Status: Current every day smoker Physical Exam Vital Signs/Narrative: Vital Signs Temp Pulse Resp BP Pulse Ox 07/31/20 13:04 98.1 F 96 20 H 150/105 H 98 Diagnostic/Tx/Re-eval Right hand x-ray read by emergency doctor as well as the radiologist shows fourth and fifth digit distal phalanx fractures. - Medical Decision Making Patient has fractures, he has abrasions over the fifth digits I do not believe this is an open fracture however I will be cautious and treat with antibiotics. Otherwise I will discharge him in stable condition. ED Disposition - Plan for ED Patient: Disposition: Acute Care Hospital [facility] Diagnosis: Closed fracture of tuft of distal phalanx of finger Instructions: ED Fracture, Finger, Closed Prescriptions: Cephalexin [Keflex] 500 mg PO Q6 #40 cap Transmission Status: Pending to [facility] Referrals: Burak Damon DO [Primary Care Provider] - 3-5 Days
[2020-07-31] MEDS: Cephalexin 250 MG Capsule 500 MG PO (14:23)
[2020-07-31] MEDS: Diphth,Pertuss(Acell),Tet Vac 0.5 ML Vial IM (14:24)
== END 2020-07-31 14:48 | disposition home or self-care (01) ==
PROVIDERS: Emergency Provider Emergency Medicine; PCP Family Medicine
DX: S62.634A Displaced fracture of distal phalanx of right ring finger, initial encounter for closed fracture (principal); S62.636A Displaced fracture of distal phalanx of right little finger, initial encounter for closed fracture; W23.0XXA Caught, crushed, jammed, or pinched between moving objects, initial encounter; Y93.9 Activity, unspecified; Y92.9 Unspecified place or not applicable; F17.200 Nicotine dependence, unspecified, uncomplicated; Z23 Encounter for immunization
CPT/HCPCS: 73130; 90471; 90715; 99283

== ENCOUNTER 2021-04-20 05:31 | Day surgery (SDC) | payer OTHER, SELFPAY ==
[2021-04-20 06:03] VITALS: BP 146/87; PULSE 71; RESP 16; O2SAT 97; BMI 34.5
[2021-04-20] MEDS: Lactated Ringers 1,000 ML 100 ML IV (06:16)
--- NOTE | 2021-04-20 06:21 | HP.PCM_ITS ---
HPI - General HPI Narrative Tanna GUZMAN, is a 45 M who presents today for screening colonoscopy. He has never had a previous one. He does have a brother who is 57 when he developed colon cancer. The patient denies bright red blood per rectum or melena. No abdominal pain. No unexpected weight loss. No history of DVT. He has been vaccinated for COVID-19. He is a chronic tobacco user he chews. [facility] Medical History Alcohol use Arthritis Excessive bleeding Gastric reflux Hypertension Smoker Home Medications amlodipine 5 mg PO DAILY 11/26/19 [History Last Taken 04/20/21 04:15] lisinopril 20 mg PO DAILY 11/26/19 [History Last Taken 04/20/21 04:15] omeprazole 20 mg PO DAILY 11/26/19 [History Last Taken 04/20/21 04:15] Allergy/AdvReac Type Severity Reaction Status Date / Time Penicillins Allergy Swelling Verified 04/20/21 05:59 oxycodone [From Percocet] AdvReac Nausea Verified 04/20/21 05:59 Surgical History (Updated 04/16/21 @ 14:11 by Kirstie Eastman) History of excision of lesion Hx of arthroscopic knee surgery Hx of total hip arthroplasty Social History Smoking Status: Current every day smoker tobacco type: smokeless tobacco ROS Constitutional Constitutional: Reports systems reviewed and no addt'l complaints, except as documented Cardiovascular Cardiovascular: Denies chest pain Respiratory/Chest Respiratory/Chest: Denies shortness of breath at rest Gastrointestinal Gastrointestinal: Denies abdominal pain, change in bowel habits, hematochezia or melena Vital Signs Vital Signs Vital Signs: 04/20/21 06:03 04/20/21 06:13 Pulse Rate 71 Respiratory Rate 16 Respiratory Pattern Normal Blood Pressure 146/87 H Blood Pressure Mean 106 Blood Pressure Source Monitor Blood Pressure Position Semi-Fowlers Blood Pressure Location Right Arm Pulse Ox 97 Oxygen Delivery Method Room Air Weight Weight: 233 lb 14.567 oz Body Mass Index (BMI) 34.5 Physical Exam Const alert, oriented x3 and no apparent distress General Appearance: cooperative and comfortable Eyes General Eye: normal appearance of both eyes Neck General: normal visual inspection Chest inspection of chest normal Resp Effort and Inspection: able to speak in complete sentences and symmetric chest movement Auscultation: clear to auscultation bilaterally Cardio regular rate and regular rhythm GI soft to palpation, non-tender and non-distended Extremity no calf tenderness Neuro oriented x3 Psych thought process normal Assessment & Plan Assessment/Plan (1) Screening for intestinal cancer: PLAN: I recommended the patient a screening colonoscopy with possible biopsy or polypectomy as indicated. He is aware of the technique, benefit, risk, alternatives. He has had an opportunity to ask and have questions answered. He presents via open access today. We will proceed as noted. Meño Finn M.D., F.A.C.S.
[2021-04-20 06:52] VITALS: BP 107/79; BP 146/87; PULSE 75; RESP 16; TEMP 36.7; O2SAT 96
--- NOTE | 2021-04-20 06:52 | OP.COLON_ITS ---
Patient Name: Tanna Cordova Procedure Date: 04/20/2021 6:16 AM Date of : 1975 Age: 45 Procedure: Colonoscopy Indications: Screening for colorectal malignant neoplasm Providers: Meño Finn MD Medicines: See the Anesthesia note for documentation of the administered medications Patient Profile: Last Colonoscopy: none. The patient's first colonoscopy is today. Complications: No immediate complications. Procedure: Pre-Anesthesia Assessment: - Prior to the procedure, a History and Physical was performed, and patient medications and allergies were reviewed. The patient's tolerance of previous anesthesia was also reviewed. The risks and benefits of the procedure and the sedation options and risks were discussed with the patient. All questions were answered, and informed consent was obtained. Prior Anticoagulants: The patient has taken no previous anticoagulant or antiplatelet agents. ASA Grade Assessment: I - A normal, healthy patient. After reviewing the risks and benefits, the patient was deemed in satisfactory condition to undergo the procedure. After I obtained informed consent, the scope was passed under direct vision. Throughout the procedure, the patient's blood pressure, pulse, and oxygen saturations were monitored continuously. The adult colonoscope was introduced through the anus and advanced to the cecum, identified by appendiceal orifice and ileocecal valve. The colonoscopy was performed without difficulty. The patient tolerated the procedure well. The quality of the bowel preparation was good. The ileocecal valve and the appendiceal orifice were photographed. Scope In: 6:35:21 AM Scope Withdrawal Time 0 hours 7 minutes 54 seconds Scope Out: 6:46:57 AM Total Procedure Duration Time 0 hours 11 minutes 36 seconds Findings: The perianal and digital rectal examinations were normal. Normal prostate. The colon (entire examined portion) appeared normal. Impression: - The entire examined colon is normal. - No specimens collected. Recommendation: - Discharge patient to home. - Resume previous diet. - Continue present medications. - Repeat colonoscopy in 5 years for surveillance based upon Brother with h/o colon cancer. Procedure Code(s): --- Professional --- 50082, Colonoscopy, flexible; diagnostic, including collection of specimen(s) by brushing or washing, when performed (separate procedure) Diagnosis Code(s): --- Professional --- Z12.11, Encounter for screening for malignant neoplasm of colon CPT copyright 2017 [employer]. All rights reserved. The codes documented in this report are preliminary and upon remote inpatient coder review may be revised to meet current compliance requirements. Meño Finn MD 04/20/2021 6:52:19 AM This report has been signed electronically. Number of Addenda: 0 Note Initiated On: 04/20/2021 6:16 AM
--- NOTE | 2021-04-20 06:53 | OP.CCLET_ITS ---
04/20/2021 Burak Damon [address] [place] [address] [place] [address] Re : Colonoscopy procedure for A Tasha Dear Dr. Damon This procedure was performed on Tuesday, April 20, 2021. My impressions and recommendations are as follows: Impressions : - The entire examined colon is normal. - No specimens collected. Recommendations : - Discharge patient to home. - Resume previous diet. - Continue present medications. - Repeat colonoscopy in 5 years for surveillance based upon Brother with h/o colon cancer. My findings are described in the full procedure note, which is enclosed. If I can be of further assistance, please feel free to contact me at Doctor phone number(s): Work: . Sincerely, Meño Finn MD 04/20/2021 6:52:19 AM This report has been signed electronically.
[2021-04-20 06:55] VITALS: BP 115/86; BP 146/87; PULSE 76; RESP 16; O2SAT 98
[2021-04-20 07:00] VITALS: BP 146/87; PULSE 78; RESP 16; O2SAT 96
[2021-04-20 07:04] VITALS: BP 114/74; BP 146/87; PULSE 70; RESP 16; O2SAT 98
[2021-04-20 07:15] VITALS: BP 146/87
== END 2021-04-20 07:15 ==
LOC: EN 05:32 → AC 05:33
PROVIDERS: PCP Family Medicine; Referring Provider Family Medicine; Visit Provider Surgery
PROC: 0DJD8ZZ Inspection of Lower Intestinal Tract, Via Natural or Artificial Opening Endoscopic (ICD-10-PCS; CPT 45378; principal; 2021-04-20 06:25)
DX: Z12.11 Encounter for screening for malignant neoplasm of colon (principal); I10 Essential (primary) hypertension; K21.9 Gastro-esophageal reflux disease without esophagitis; M19.90 Unspecified osteoarthritis, unspecified site; Z80.0 Family history of malignant neoplasm of digestive organs; Z79.899 Other long term (current) drug therapy; F17.220 Nicotine dependence, chewing tobacco, uncomplicated
CPT/HCPCS: 45378; J7120; J2405

== ENCOUNTER 2021-08-17 20:00 | Outpatient (CLI) | payer OTHER, SELFPAY | END 2021-08-17 23:59 | disposition home or self-care (01) | PROVIDERS: PCP Family Medicine; Referring Provider Family Medicine; Visit Provider Family Medicine | DX: G47.10 Hypersomnia, unspecified (principal) | CPT/HCPCS: 95810 ==

== ENCOUNTER 2022-06-30 07:02 | Day surgery (SDC) | payer OTHER, SELFPAY ==
--- NOTE | 2022-06-09 12:21 | HP.PCM_ITS ---
History and Physical History and Physical? Patient Name: Marcelino CordovaDOB: 1975 From:? BRANDON MCALLISTER PA-C? DATE OF SURGERY:? 06/15/2022 SCHEDULED PROCEDURE: direct anterior left total hip arthroplasty? HISTORY OF PRESENT ILLNESS: Patient is a 46-year-old male with a chief complaint of left hip pain. Patient complains of pain with 4 year duration. The pain is 8 on a scale of 10. The pain is increased with stairs, walking, standing. Patient reports start up pain. The pain is located in the left groin and anterior thigh. The patient states that the pain does not awaken them at night. Activity modification include a reduced ability to perform normal daily activities without pain including putting on shoes. The patient does not perceive that the affected leg is shorter than the other. Previous treatments include Ibuprofen, Aleve. The patient has had right total hip replacement and notes the left hip pain is similar to the right prior to surgery. REVIEW OF SYSTEMS: ROS: Const: Denies anorexia, anxiety, change in appetite, fever and weight change,hard of hearing, and vision problems. CV: Denies chest pain, heart murmur, irregular heartbeat and peripheral vascular disease. Resp: Denies asthma, cough, pneumonia, sleep apnea, shortness of breath, tuberculosis and wheezing. GI: Denies constipation, diarrhea, heartburn, nausea, bloody stools and vomiting, and difficulty swallowing. : . (F Genital Sx) Denies incontinence. Musculo: Denies leg swelling, trouble walking and weakness and limp. Skin: Reports tattoo, but denies Raynaud's and history of shingles. Neuro: Denies ambulatory dysfunction, dizziness, numbness/tingling and tremor. Psych: Denies anxiety, depression, insomnia, mental illness and stress. Peter/Lymph: Denies anemia, bleeding/bruising tendency and past transfusion. Reviewed, no changes. PAST MEDICAL HISTORY: Advance Care Plan: Other Directive, POA Effective Date: 04/19/2022 Other Directive, LIVING WILL Effective Date: 04/19/2022 PMH: Medical Problems: High Blood Pressure, GERD Accidents: Fracture - Fingers from sports Sports Related Injury - Sprained ankles & broken fingers Surgical Hx: Osteochondroma - 2002 [facility] - (10/17/2006) R KNEE? [facility]? [facility] Vasectomy RT THR - (03/05/2020) SAW @ [facility] Anesthesia Complications: None Assistive Devices: None Reviewed, no changes. SOCIAL HISTORY: SH: Marital: .Occupation: [employer].Work Status: Currently Working.Hand Dominance: Right-handed. Personal Habits:? Cigarette Use: Never.Smokeless Tobacco: Never Used Smokeless Tobacco.E-Cigarette Use: Never used.Alcohol: Weekly use.Drug Use: Denies Use.Enjoy Exercising: Daily. Reviewed, no changes. VITALS: Ht: 69.5 Wt: 230lb Wt k.328 BMI: 33.5 BP: 148/100 Pulse: 67 T: 98.1 T: 36.7C Pain Level: 5 O2SatR: 98 ALLERGIES: PCN Penicillin? MEDICATIONS: Omeprazole Magnesium 20.6 (20 Base) MG 1 capsule by mouth daily, Lisinopril 20 mg Take 1 tab by mouth once daily, Amlodipine Besylate 5 mg One tablet by mouth daily PRE-OP EXAM:? General appearance:NORMAL? ? ? Other: Eyes: Conjunctivae and lids: NORMAL? Pupils: ERR Ears, Nose, Mouth, and Throat: NORMAL? Other: Inspection of lips, teeth and gums: NORMAL? ?Other: Neck: Examination of neck: no masses noted. Respiratory: Assessment of respiratory effort: NORMAL? ?Other: ?Auscultation of lungs: clear to auscultation no wheezes, rhonchi or rales. Cardiovascular:? Auscultation of heart: regular rate and rhythm, no murmurs, gallops or rubs. Exam of carotid arteries: NORMAL? ?Other: Gastrointestinal:? Exam of abdomen: soft, nontender, nondistended bowel sounds present. Lymphatic:? Palpation of nodes in neck:? NORMAL? ? ?Other: ? Palpation of nodes in Axillae: NORMAL? ?Other: Neurological: see below Psychiatric:? Orientation to time, place and person: NORMAL? ? ?Other: ?Mood and affect: NORMAL? ?Other: PHYSICAL EXAMINATION: ?Exam: Const: Appears healthy.? No signs of apparent distress present.? Alert and oriented x 3.? Musculo: Mild antalgic gait? Hips: ?Insp/Palp: Leg lengths are equal Minimal tenderness over the greater trochanter on the right. Flexion 100 degrees, internal rotation 20 degrees, external rotation 20 degrees Left hip: flexion 90 degrees, internal rotation 3 degrees with reproducible groin pain, external rotation 10 degrees.? 5/5 hip flexion strength on the right, 4/5 on the left.?? Skin: Skin is warm, dry and intact.? Neuro: Sensation to light touch is intact in the lower extremities deep perone al, lower extremities dorsal cutaneous, lower extremities saphenous, lower extremities sural and lower extremities tibial nerve distribution.? ? IMAGING STUDIES: Complete series of the left hip with AP pelvis, AP hip and crossfire lateral reviewed today reveal joint space narrowing, subchondral sclerosis and osteophyte formation consistent with severe stage IV osteoarthritis.? On AP pelvis patient has stable well-placed right total hip replacement. IMPRESSION: 1. grade IV osteoarthritis left hip? 2. High Blood Pressure 3. GERD PLAN: Patient denies history of DVT or PE, open wounds or sores over the body, no allergies to antibiotics and no current antibiotic use. No current dental issues Aspirin 81 twice a day ?4 weeks for DVT prophylaxis postoperatively At this time patient has consented to proceed with a direct anterior left total hip arthroplasty.? Dr. Comer did discuss and review with the patient all treatment options including surgical versus nonsurgical options.? Patient does wish to proceed with the above-stated procedure.? Potential risk, benefits, and complications of the procedure were discussed in detail including but not limited to , infection, nerve and blood vessel damage, persistent pain, numbness, tingling, paresthesias, blood clot, pulmonary embolism, and requirement for possible further surgery.? The patient expressed full understa nding and has no further questions for the doctor.? Patient does agree to proceed with the above-stated procedure and has signed the surgery consent form. I have reviewed the [place] Automated Rx Reporting System (OARRS) report for this patient for refill pattern and other prescriber involvement as part of the appropriate surveillance for the provision of acute and chronic controlled medications.? The report was requested and reviewed on the date of this entry and was considered in the prescribing process. Discussed with the patient the risks associated with the COVID-19 virus including the risk of exposure while at the hospital.? The patient was reassured local hospitals have low infection rates and taken all necessary precautions to limit patient exposure to COVID-19.? Limiting the patient's time in the hospital may decrease their exposure to COVID-19.? The patient was notified that we will need to comply with any screening or testing the hospital wishes to perform and that surgery may be delayed for any positive test results.
--- NOTE | 2022-06-23 08:56 | EKG12_ITS ---
Test Reason : PRE-OP Blood Pressure : / mmHG Vent. Rate : 097 BPM Atrial Rate : 097 BPM P-R Int : 162 ms QRS Dur : 090 ms QT Int : 358 ms P-R-T Axes : 045 000 034 degrees QTc Int : 454 ms Normal sinus rhythm Septal infarct , age undetermined , cannot be excluded Abnormal ECG Confirmed by ISABEL VANCE, CELSO ([id number]), order editor KODY CEBALLOS ([id number]) on 06/24/2022 8:10:57 AM Referred By: Walt Comer Confirmed By:CELSO HALL MD
[2022-06-23 09:08] LABS: Absolute Lymphocyte Count 0.63 X10^3/uL (0.83-4.51); Absolute Neutrophil Count 3.4 X10^3/uL (2.0-7.7); Basophil# 0.03 X10^3/uL; Basophil% 0.7 % (0-1); Eosinophil# 0.03 X10^3/uL; Eosinophils% 0.7 % (0-5); Hematocrit 47.7 % (40-54); Hemoglobin 16.7 g/dL (13.0-16.5); Lymphocyte # 0.63 X10^3/ul (0.83-4.51); Mean Corpuscular Hgb 32.8 pg (27.0-32.0); Mean Corpuscular Volume 93.7 fL (80-94); Mean Platelet Vol. 8.4 fl (6.2-12.0); Monocyte# 0.41 X10^3/uL; Monocyte% 9.1 % (0-10); NRBC Flagged by Analyzer 0 % (0-5); Neutrophil # 3.39 X10^3/uL (2.7-7.7); Neutrophil % 75.3 % (47-70); Platelet Count 159 K/mm3 (150-450); RBC Distribution Width CV 12.1 % (11.6-14.6); RBC Distribution Width SD 42.5 fl (35.1-43.9); Red Blood Count 5.09 M/mm3 (4.6-6.2); White Blood Count 4.5 K/mm3 (4.4-11.0)
[2022-06-23 09:30] LABS: Magnesium 2.3 mg/dL (1.6-2.6)
[2022-06-23 09:35] LABS: Albumin, Serum 4.1 g/dL (3.2-5.0); Anion Gap 8 (5-15); BUN 8 mg/dL (7-18); BUN/Creat Ratio 7.8 RATIO (10-20); Calcium,Total 10.1 mg/dL (8.5-10.1); Chloride 97 mmol/L (98-107); Creatinine, Serum 1.02 mg/dL (0.70-1.30); EST Glomerular Filtration Rate 83 mL/min (>60); Est Glom Filt Rate - Afr Amer 100 mL/min (>60); Glucose 103 mg/dL (74-106); Potassium 3.4 mmol/L (3.5-5.1); Sodium Level 136 mmol/L (136-145)
[2022-06-30] VITALS (9 sets, daily range): BP systolic 103–158; BP diastolic 66–93; PULSE 72–95; RESP 16–18; TEMP 36.8–37.6; O2SAT 95–100; BMI 34.4
--- NOTE | 2022-06-30 06:58 | OP.PCM_ITS ---
Report of Operation Date of Procedure: 06/30/22 Pre-Operative Diagnosis: Left hip Secondary osteoarthritis Post-Operative Diagnosis: Left hip secondary osteoarthritis Surgery/Procedure Performed:: Left minimally invasive direct anterior hip replacement Description of Surgical Findings:: Stable hip with equal leg lengths Surgeon: Walt Comer finance accounting internship: Andrew Andrade Type of Anesthesia: Spinal Anesthesiologist: Jose Juan Silver Special Medications: Cleocin, 1 g TXA at incision, 1 g TXA closure, 10 mg Decad brittany, joint cocktail (5 mg Duramorph, 30 mL of 0.5% Ropivicaine, 1000 units of epinephrine, 30 mg of Toradol) Specimen's removed: Bony cuts Estimated Blood Loss (mL): 350 Fluids Replaced: 800 Description of Procedure: Components used: 1. Accolade 2 Ariel femoral stem size 7 127? 2. [place] trident 2 acetabular shell size 56 mm 3. Ariel X3 polyethylene F 4. Ariel Biolox delta 36mm, -2.5mm femoral head Brief history operative indications: 47 yo M who failed conservative measures for their hip osteoarthritis. X-rays were consistent with osteoarthritis including joint space narrowing, osteophyte formation and subchondral cysts. Total hip replacement was discussed with the patient with risks and benefits including but not limited to blood loss, DVTs, PEs, neurovascular damage, dislocation, general risks of anesthesia including loss of life. Patient demonstrated an understanding medical clearance is obtained the patient was consented for surgery. Procedure: On the date of procedure the patient's L hip was marked in the preoperative area. Patient was then taken back to the operating room where anesthesia assumed control of the C-spine and airway and administered anesthetic. Patient was transferred to the operating table and placed in the supine position. The hips were placed at the break of the bed and a sacral bump was placed. L The lower extremity was then prepped out in a sterile fashion using chlorhexidine while the surgeon scrubbed. The PA was vital in the positioning of the patient. Upon reentering the room the left lower extremity was draped in the standard orthopedic fashion and the incision was marked. A timeout was called and everyone agreed upon the side, the site, the procedure be performed, antibody given, and patient's identity. At this time incision was made through skin, subcutaneous tissue, and fat down to fascia. The fascia was then incised and the TFL was retracted laterally. A retractor was placed on the lateral border of the femoral neck. Attention was directed to the inferior portion of the approach and all crossing vessels were identified and appropriately coagulated. A retractor was then placed on the medial portion of the femoral neck. The anterior capsule was then cleared of all soft tissue and then H shaped capsulotomy was made. The retractors were then placed inside the capsule. The femoral neck was identified and a cleanup cut was made. At this time a power corkscrew was used to remove the femoral head. Attention was then turned toward the acetabulum where the soft tissues were appropriately retracted and the acetabulum was sequentially reamed to 56 mm. A 56 mm cup was then selected and impacted into place. Acetabular liner was impacted into place and locking mechanism was verified. The position of the acetabular cup was then verified under live fluoroscopy. Attention was then turned to the femur. Soft tissue releases on the medial and lateral femoral neck were appropriately done, the leg was externally rotated and lateralized. A Meza retractor was placed medially and proximally to the greater trochanter this allowed appropriate visualization and exposure of the femoral canal. Rongeour was then used to remove excess lateral bone. A canal finder and entry broach were used to open the proximal canal. Once we verified we were down the femoral canal we subsequently broached up to a size 7 femur. The appropriate neck was placed in the previously selected head was trialed with a -2.5 mm neck. Traction was pulled and the hip was reduced with internal rotation. Once it was appropriately reduced and stability was checked. There was minimal shuck, equal leg lengths and appropriate stability with hyperextension and external rotation as well as with 90? flexion and internal rotation. Fluoroscopy was then also used to verify the position of the components and leg lengths using the contralateral side for comparison. The trial components were then dislocated the proximal femur was again exposed and the components were removed from the wound. The final components were verified and opened. The wound was copiously irrigated out with normal saline. The acetabulum was checked for any residual debris. The final components were placed and impacted. Traction and internal rotation were again used to reduce the hip. After adequate reduction the hip remained stable with appropriate leg lengths. The final components were once again checked with live fluoroscopy and were found to be satisfactory. The wound was then copiously irrigated with normal saline once more, and hemostasis was obtained. Closure was then done using #1 Vicryl runner to close the fascia. A 2-0 vicryl interuppted sutures were used to close the subcutaneous skin. A 3-0 Monocryl and Steri-Strips were used for final skin closure. A Silverlon dressing was placed. Patient was awakened by anesthesia and transferred to the [facility]. Patient was then transferred to the PACU for recovery. During the course of the procedure the physician ada accommodation consultant (PE) played a vital role. Their intimate knowledge of my steps in the procedure aided in safe and expedient completion of the procedure. The PE played a vital rolls in positioning particularly in obtaining the appropriate positioning of the sacral bump. The PE was also vital in the retraction of soft tissues during the exposure and especially the femoral work as this is a vital part of the procedure to prevent complications and fractures. The PE was also vital and protecting soft tissues during times of bony cuts and reaming. He also played a vital role in closure with my direct supervision. The PE was also important during reduction and dislocation of the joint and trials intraoperatively. Postoperative plan: Patient will get 24 hours postop antibiotics. Patient will get in-house physical therapy and will be weight-bear as tolerated. Patient will follow up in office in 2 weeks for a wound check and x-rays. Aspirin 81 mg twice daily. Complications No intraoperative complications Admit VTE Documentation VTE Present on Admission: No VTE Mechan Device Prophylaxis: SCD's and Thigh High ARPIT Hose VTE Pharm Prophylaxis ordered?: Yes
[2022-06-30] MEDS: Lactated Ringers 1,000 ML 999 ML IV ×2 (07:40→10:30)
[2022-06-30] MEDS: Acetaminophen 500 MG Tablet 1000 MG PO (07:40)
[2022-06-30] MEDS: Gabapentin 600 MG Tablet PO (07:40)
[2022-06-30] MEDS: Celecoxib 200 MG Capsule 400 MG PO (07:45)
[2022-06-30 08:00] LABS: Bedside Glucose 87 mg/dL (74-106)
[2022-06-30] MEDS: Cefazolin 2 GM in 0.9% Normal Saline 100 ML IV (08:51)
[2022-06-30] MEDS: TXA 1000mg in NS100 100ml (IVPB at Closure) 660 MG IV (09:05)
[2022-06-30] MEDS: dexAMETHasone 10 MG/ML Vial IV (09:10)
--- NOTE | 2022-06-30 09:30 | HIP_PTH ---
PATIENT: NIRU GUZMAN LOC: [facility] – [place] U#:[id number] AGE/SX: 47/M ROOM: RE06/30/[address]: Dr. Walt Comer MD : 1975 BED: DIS: 06/30/2022 SPEC #: [id number] RECD: 06/30/22 11:25 STATUS: HENOK DARIEL #: [id number] ZAYDA: 06/30/22 09:[address]: Walt Comer DEPT: SURGICAL PATHOLOGY RECD BY: Eyad Lott ENTERED: 06/30/22 12:09 SP TYPE: TOTAL HIP OTHR DR: MD Dr. Burak Powell DO Tissues: Hip, NOS Procedures: Decalcification bone/plaque Surgery Specimen Level IV HEADER OPERATION: ERAS, total hip anterior approach PRE-OP DIAGNOSIS: Left hip secondary osteoarthritis TISSUE SUBMITTED: Left hip bone MICROSCOPIC DIAGNOSIS Bone and tissue of left hip, total hip resection: Severe degenerative joint disease. Mild synovial hyperplasia. AM:saurabh 07/02/2022 MICROSCOPIC DESCRIPTION Slides are reviewed. GROSS DESCRIPTION Received is one container labeled with the patient's name and designated left hip bone. The specimen consists of a lama femoral head measuring 5 x 5 x 4 cm. The articular surface displays prominent osteophyte formation and bone erosion. Also present in the specimen container is a detached piece of bone consistent with portion of femoral neck measuring 5 x 3 x 1.1 cm. Also present in the specimen container are multiple irregular fragments of bone reamings and pink-yellow soft tissue measuring in aggregate 6 x 5 x 1 cm. Nursing Attendant sections are submitted in two cassettes as follows: 1 - soft tissue, 2 - bone after decalcification. / SJ:saurabh 06/30/2022 :5 CPT: 98013, 95464
--- NOTE | 2022-06-30 09:33 | RAD_ITS ---
STUDY: X-RAY - PELVIS AND LEFT HIP REASON FOR EXAM: Male, 47 years old. Intraoperative digital documentation views of the left total hip arthroplasty. TECHNIQUE: 5 intraoperative digital documentation views. COMPARISON: AP pelvis and right hip x-rays dated May 23, 2020. FINDINGS: 5 intraoperative digital documentation views show placement of left total hip arthroplasty. RAD/Hip 1 view with Pelvis IMPRESSION: Intraoperative digital documentation views as described. Electronically Signed: Edwin Crisostomo, at 10:21 EST ,
[2022-06-30] MEDS: TXA 1000mg in NS100 100ml (IVPB at Incision) 660 MG IV (09:47)
--- NOTE | 2022-06-30 10:40 | RAD_ITS ---
STUDY: X-RAY - PELVIS AND LEFT HIP REASON FOR EXAM: Male, 47 years old. Postoperative evaluation after total hip arthroplasty. TECHNIQUE: 2 views of the pelvis and hip. COMPARISON: May 23, 2020. FINDINGS: There is a non-specific bowel gas pattern. Normal visualized soft tissue structures. Bilateral total hip arthroplasties in anatomic alignment without complications. New left total hip arthroplasty shows minimal soft tissue gas and swelling from the surgical intervention . RAD/Hip Min 2 Views (Portable) IMPRESSION: Uncomplicated new left total hip arthroplasty. Electronically Signed: Edwin Crisostomo, at 11:07 EST ,
[2022-06-30] MEDS: Cefazolin 1 GM/50 ML BAG IV (13:08)
== END 2022-06-30 14:16 | disposition home or self-care (01) ==
LOC: SDC 07:03 → AC 07:03
PROVIDERS: Anesthesiology; PCP Family Medicine; Referring Provider Specialist; Visit Provider Specialist
PROC: (CPT 27284; principal; 2022-06-30 09:05)
DX: M16.12 Unilateral primary osteoarthritis, left hip (principal); I10 Essential (primary) hypertension; K21.9 Gastro-esophageal reflux disease without esophagitis; Z79.899 Other long term (current) drug therapy; Z96.641 Presence of right artificial hip joint
CPT/HCPCS: 27130; 01214; 36415; 73501; 73502; 76000; 80048; 82040; 82962; 83735; 85025; 87081; 88305; 88311; 93005; C1776; J7120; J2405; J3475

== ENCOUNTER 2022-07-23 08:00 | Outpatient (RCR) | payer OTHER, SELFPAY ==
--- NOTE | 2022-07-05 08:00 | HP.PTEVAL ---
Patient's Visit Information NIRU GUZMAN is a 47 year old M referred to Physical Therapy by ADAM Cervantes with a diagnosis of L DEDE. Date of Evaluation: 07/02/22 Physical Therapist: Ralph Amaya DPT - Visit Plan Frequency: 3x /Week Duration: 4 Weeks Plan: Start with ROM, gait progression, functional mobility. May use ice as needed. - Subjective Pt. is here today for his initial evaluation with diagnosis of L DEDE. DOS: 06/30/22. Pt. reports overall doing well. Pt. reports having increased pain with sitting, but walking is pretty good. Pt. reports being HEP compliant and is walking with a walker well. He had his previous hip done a few years ago. No N/T, no sudden weakness, no calf pain, no double vision. Pt. reports the hardest thing is trying to sleep. He has been icing as indicated and talking medication as prescribed. Pt. works in [employer] and is hopeful to get back to all recreational and work activities with limitations. - Pain L hip Pain Intensity (Out of 10): 4 Pain Intensity Range: 3, 7 - Objective POSTURE: Pt. has decent posture in stance. Pt. has increased wt. shift to R side and uses FWW to off load. PALPATION: Pt. has incision still covered by his bandaging, no signs of infection. To remove in a few days. NEURO: Pt. has normal DTR of B Achilles and patellar DTR bilaterally. Pt. is able to rise on heels and toes without issues. ROM: L hip: PROM: flexion 75deg, abd 30deg, ext 0deg. R HIP: full motion no pain. tight B HS noted. MMT: RLE: 5/5 throughout. L LE: ankle 5/5 throughout; knee: ext 25#, flexion 21#; hip: flexion 0#, abd 0#, ext 0#. GAIT: Pt. ambulates with FWW. He has increased pain during L stance phaser, but overall pretty good stride length and control. - Balance/Special Test Scores Lower Extremity Functional Score: 31 TUG Test Time Seconds: 19.1 - Goals Goal 1:: LTG: Pt. to be I with HEP. Goal Time Frame: 4-6 Weeks Goal 2:: STG: Pt. to sleep throughout the night without increase in symptoms. Goal Time Frame: 2-4 Weeks Goal 3:: LTG: Pt. to ambulate without AD with normal step length for at least 1000' without increase in symptoms. Goal Time Frame: 4-6 Weeks Goal 4:: LTG: Pt. to have increased LLE strength symmetrical to R side without increase in symptoms. Goal Time Frame: 4-6 Weeks Goal 5:: LTG: Pt. to complete TUG with time less than 8 seconds without use of AD. Goal Time Frame: 4-6 Weeks Goal 6:: LTG: Pt. to negotiate stairs with reciprocal pattern with 1 HR without increase in symptoms. Goal Time Frame: 4-6 Weeks - Rehabilitation Potential Physical Therapy Diagnosis: Pt. has signs and symptoms consistent with LTHA, DOS: 06/30/22. Pt. has subsequent difficulty with walking, increased pain, marked weakness and decreased ability to complete ADLs. Pt. would benefit from PT to address the above limitations progressing back to all functional mobility without limitations. Rehabilitation Potential: Excellent - Anticipated Interventions Patient/Client Instruction: Educate patient on: Condition, Plan of Care, Risk Factors, Benefits of Fitness Program For the Purpose of:: To improve health and function, To foster healthy habits, To improve decision making, To facilitate caregiver knowledge, To improve self management, To prevent re-injury, To improve ability to perform tasks related to life management Therapeutic Exercise to Include: Strength training, Power training, Balance training, Coordination, Postural training, Flexibilty training, Gait and locomotor training, Passive ROM, Active ROM For the Purpose of:: To decrease pain, To decrease swelling/inflammation, To increase ROM, To improve nutrient delivery to tissue, To increase oxygenation perfusion, To improve muscle performance and motor function, To improve ability to perform ADL's, To increase tolerance to activity/condition/position, To improve gait and locomotor functions, To improve health of tissue, To decrease soft tissue restriction, To increase flexibility/ROM, To improve safety with gait Cryotherapy (ice pack, ice massage): Yes For the Purpose of:: To decrease pain, To decrease swelling/inflammation, To increase ROM, To improve nutrient delivery to tissue, To increase oxygenation perfusion, To improve muscle performance and motor function Thank you for the opportunity to evaluate your patient. For Medicare and Medicare HMO plans, please review the plan of care and approve it. It will need to be FAXED BACK to us at [phone] for Medicare purposes. For Medicare only, by signing this I certify the plan of care. Please let me know if there are questions or concerns regarding this plan of care. Physician Signature: Date:
--- NOTE | 2022-07-23 08:53 | HP.PTDCSUM ---
It has been my pleasure to treat NIRU GUZMAN referred by ADAM Cervantes, with the diagnosis of L DEDE for a total of 5 visit(s). Discharge Date: Please see the following information for a summary of their discharge status. Subjective: I am ready to be done L hip Pain Intensity (Out of 10): 1 Objective/Function: L hip pain is 1/10. L hip strength is 30 #F throughout. L hip ROM: flex= 90, ext= 10. Pt is I with stairs and has no limitations with ambulation at this time. Pt is I with HEP Goal 1:: LTG: Pt. to be I with HEP. Goal Progress: Goal Met Goal 2:: STG: Pt. to sleep throughout the night without increase in symptoms. Goal Progress: Goal Met Goal 3:: LTG: Pt. to ambulate without AD with normal step length for at least 1000' without increase in symptoms. Goal Progress: Goal Met Goal 4:: LTG: Pt. to have increased LLE strength symmetrical to R side without increase in symptoms. Goal Progress: Goal Met Goal 5:: LTG: Pt. to complete TUG with time less than 8 seconds without use of AD. Goal Progress: Goal Met Goal 6:: LTG: Pt. to negotiate stairs with reciprocal pattern with 1 HR without increase in symptoms. Goal Progress: Goal Met Plan: Discharge to HEP If there are questions or concerns regarding this patient's physical therapy, please feel free to call me at [phone]. Thank you for the referral of this patient. Sincerely, Darnell Rawls, PT, ATC Balance/Gait/Functional tests - Balance/Special Test Scores Lower Extremity Functional Score: 62 TUG Test Time Seconds: 19.1 Tug Test: <20 sec.=mostly independent
== END 2022-07-23 09:58 | disposition home or self-care (01) ==
LOC: PT 08:00
PROVIDERS: PCP Family Medicine; Referring Provider Physician Assistant Surgical; Visit Provider Physician Assistant Surgical
DX: Z47.1 Aftercare following joint replacement surgery (principal); Z96.642 Presence of left artificial hip joint; M16.12 Unilateral primary osteoarthritis, left hip
CPT/HCPCS: 97110; 97161; 97164

== ENCOUNTER → 2023-04-19 | Outpatient (CLI) | payer OTHER, SELFPAY ==
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
--- NOTE | 2023-04-19 06:39 | MRI_ITS ---
STUDY: MRI LEFT SHOULDER REASON FOR EXAM: Male, 47 years old. Injury, bicep tear 2 1/2 months ago. Osteochondroma removed 20 years ago. TECHNIQUE: Standardized fat and water weighted pulse sequences were obtained in all 3 orthogonal planes. COMPARISON: Left shoulder radiographs dated 01/31/2023. FINDINGS: There is mild supraspinatus and infraspinatus tendinosis without a full-thickness tear. Normal subscapularis tendon. Normal teres minor tendon. Normal supraspinatus muscle. Normal infraspinatus muscle. Normal subscapularis muscle. Normal teres minor muscle. There is subchondral edema/cyst formation in the posterior-inferior aspect of the glenoid. There is a suspected tear of the posterior-inferior glenoid labrum (axial PD series 4 images 14-15). There is mild enthesopathic subcortical cyst formation of the greater tuberosity of the humeral head. The bicipital groove is empty, compatible with a long biceps tendon tear. There is hypertrophic acromioclavicular arthrosis, with inferior osteophyte formation, with mild effacement of the supraspinatus myotendinous junction (coronal T2 series 6 image 9). There is a Type II morphology (curved), with a neutral orientation. There is trace subacromial-subdeltoid bursal fluid. Normal visualized coracohumeral and coracoacromial ligaments. Normal quadrilateral space. Normal axillary space. Normal deltoid muscle. Normal trapezius muscle. MRI/Upper Ext Joint Only(Routine) IMPRESSION: Mild supraspinatus and infraspinatus tendinosis without a full-thickness rotator cuff tear. Hypertrophic acromioclavicular arthrosis, with inferior osteophyte formation, with mild effacement of the supraspinatus myotendinous junction. Minimal subacromial-subdeltoid bursitis. Subchondral edema/cyst formation in the posterior-inferior aspect of the glenoid. Suspected tear of the posterior-inferior glenoid labrum. Long biceps tendon tear. Electronically Signed: Valente Bang MD at 12:34 EDT ,
== END | disposition home or self-care (01) ==
LOC: MRI 06:18
PROVIDERS: PCP Family Medicine; Referring Provider Orthopaedic Surgery Sports Medicine; Visit Provider Orthopaedic Surgery Sports Medicine
DX: S46.112A Strain of muscle, fascia and tendon of long head of biceps, left arm, initial encounter (principal); M25.512 Pain in left shoulder
CPT/HCPCS: 70030; 73221

== ENCOUNTER → 2024-02-02 | Outpatient (CLI) | payer OTHER, SELFPAY ==
[2024-02-02 06:37] LABS: Absolute Lymphocyte Count 0.96 X10^3/uL (0.83-4.51); Absolute Neutrophil Count 4.2 X10^3/uL (2.0-7.7); Basophil# 0.02 X10^3/uL; Basophil% 0.4 % (0-1); Eosinophil# 0.06 X10^3/uL; Eosinophils% 1.1 % (0-5); Hematocrit 44.2 % (40-54); Hemoglobin 15.3 g/dL (13.0-16.5); Lymphocyte # 0.96 X10^3/ul (0.83-4.51); Lymphocyte % 17.1 % (19-41); Mean Corp Hgb Conc 34.6 g/dL (32-36); Mean Corpuscular Hgb 31.7 pg (27.0-32.0); Mean Corpuscular Volume 91.7 fL (80-94); Mean Platelet Vol. 9.2 fl (6.2-12.0); Monocyte# 0.38 X10^3/uL; Monocyte% 6.8 % (0-10); NRBC Flagged by Analyzer 0 % (0-5); Neutrophil # 4.17 X10^3/uL (2.7-7.7); Neutrophil % 74.4 % (47-70); Platelet Count 221 K/mm3 (150-450); RBC Distribution Width CV 11.9 % (11.6-14.6); RBC Distribution Width SD 39.8 fl (35.1-43.9); Red Blood Count 4.82 M/mm3 (4.6-6.2); White Blood Count 5.6 K/mm3 (4.4-11.0)
[2024-02-02 07:11] LABS: Alcohol, Blood (Medical)-Serum < 3.0 mg/dL
[2024-02-02 07:21] LABS: ALB/GLOB Ratio 0.9 RATIO (0.9-2.4); AST(SGOT) 22 U/L (15-37); Alanine Aminotransfer ALT/SGPT 29 U/L (16-61); Albumin, Serum 3.7 g/dL (3.2-5.0); Alkaline Phosphatase 103 U/L (45-117); Anion Gap 6 (5-15); BUN 6 mg/dL (7-18); BUN/Creat Ratio 7.1 RATIO (10-20); Calcium,Total 9.6 mg/dL (8.5-10.1); Chloride 105 mmol/L (98-107); Cholesterol 175 mg/dL (200); Creatinine, Serum 0.85 mg/dL (0.70-1.30); EST Glomerular Filtration Rate 101 mL/min (>60); Est Glom Filt Rate - Afr Amer 122 mL/min (>60); Globulin 3.9 g/dL (2.2-4.2); Glucose 95 mg/dL (74-106); High Density Lipoprotein 43 mg/dL; PSA,Total - Annual Screen 1.29 ng/mL (0.00-4.00); Potassium 3.9 mmol/L (3.5-5.1); Protein, Total 7.6 g/dL (6.4-8.2); Sodium Level 137 mmol/L (136-145); Triglycerides 101 mg/dL; Very Low Density Lipoprotein 20 mg/dL (5-40)
[2024-02-02 07:23] LABS: Microalbumin,Random Urine 13.3 mg/L (NO RANGE EST.); Microalbumin:Creatinine Ratio 11.2 mg/g CRE (<30 mg/g CRE)
== END | disposition home or self-care (01) ==
LOC: LAB 06:05
PROVIDERS: PCP Family Medicine; Referring Provider Family Medicine; Visit Provider Family Medicine
DX: Z00.00 Encounter for general adult medical examination without abnormal findings (principal); F10.21 Alcohol dependence, in remission; Z12.5 Encounter for screening for malignant neoplasm of prostate
CPT/HCPCS: 36415; 80053; 80061; 82043; 82077; 82570; 83036; 84153; 85025; G0103

== ENCOUNTER 2024-05-25 07:00 | Outpatient (RCR) | payer OTHER, SELFPAY ==
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
== END 2024-05-25 19:00 | disposition home or self-care (01) ==
LOC: PT 07:00
PROVIDERS: PCP Family Medicine; Referring Provider Family Medicine; Visit Provider Family Medicine
DX: M25.511 Pain in right shoulder (principal)
CPT/HCPCS: 97161

== ENCOUNTER → 2024-06-13 | Outpatient (CLI) | payer OTHER, SELFPAY ==
--- NOTE | 2024-06-13 14:45 | RAD_ITS ---
STUDY: X-RAY - RIGHT SHOULDER REASON FOR EXAM: Male, 49 years old. pain TECHNIQUE: 4 view(s) of the shoulder. COMPARISON: 01/31/2023 FINDINGS: There is mild degenerative arthrosis of the glenohumeral articulation. There is degenerative arthrosis of the acromioclavicular joint without inferior osseous spur formation. Normal acromion. Normal humeral head and visualized proximal humerus. The soft tissue structures are unremarkable. Normal visualized pulmonary apex. RAD/Shoulder min 2 Views IMPRESSION: Mild glenohumeral and acromioclavicular joint arthrosis. Electronically Signed: Bruno Arteaga MD at 9:16 EST ,
== END | disposition home or self-care (01) ==
LOC: RAD 14:42
PROVIDERS: PCP Family Medicine; Referring Provider Orthopaedic Surgery Sports Medicine; Visit Provider Orthopaedic Surgery Sports Medicine
DX: M25.511 Pain in right shoulder (principal)
CPT/HCPCS: 73030

== ENCOUNTER → 2024-07-02 | Outpatient (CLI) | payer OTHER, SELFPAY ==
--- NOTE | 2024-07-02 06:44 | MRI_ITS ---
STUDY: MRI RIGHT SHOULDER REASON FOR EXAM: Male, 49 years old. Pain, rule out cuff tear. TECHNIQUE: Standardized fat and water weighted pulse sequences were obtained in all 3 orthogonal planes. COMPARISON: None. FINDINGS: There is a full-thickness tear of the distal supraspinatus tendon, overall measuring 1.8 cm in length (coronal T2 series 5 images 11-14) and 0.9 cm in width (sagittal T2 series 6 images 10-11). Normal infraspinatus tendon. There is a full-thickness tear of the distal subscapularis tendon, measuring 3.6 cm in length. Normal teres minor tendon. Normal supraspinatus muscle. Normal infraspinatus muscle. Normal subscapularis muscle. Normal teres minor muscle. There is a tiny glenohumeral joint effusion with fluid communicating into the subacromial-subdeltoid bursa. There is glenohumeral arthrosis with a tear of the posterior glenoid labrum. Normal humeral head and visualized proximal humerus. Normal biceps labral complex. Normal intracapsular long biceps tendon. Normal rotator interval. There is hypertrophic acromioclavicular arthrosis, with inferior osteophyte formation, with effacement of the torn supraspinatus tendon (coronal T2 series 5 image 14). There is a Type II morphology (curved), with a neutral orientation. Normal visualized coracohumeral and coracoacromial ligaments. Normal quadrilateral space. Normal axillary space. Normal deltoid muscle. Normal trapezius muscle. MRI/Upper Ext Joint Only(Routine) IMPRESSION: 1.8 x 0.9 cm full-thickness tear of the distal supraspinatus tendon. Full-thickness tear of the distal subscapularis tendon, measuring 3.6 cm in length. Hypertrophic acromioclavicular arthrosis, with inferior osteophyte formation, with effacement of the torn supraspinatus tendon. Tiny glenohumeral joint effusion with fluid communicating into the subacromial-subdeltoid bursa. Glenohumeral arthrosis with a tear of the posterior glenoid labrum. Electronically Signed: Valente Bang MD at 8:11 EST Reading Location ID and State: [facility] / [place] , Service support ,
== END | disposition home or self-care (01) ==
PROVIDERS: PCP Family Medicine; Referring Provider Orthopaedic Surgery Sports Medicine; Visit Provider Orthopaedic Surgery Sports Medicine
DX: M25.511 Pain in right shoulder (principal)
CPT/HCPCS: 73221

== ENCOUNTER → 2024-07-05 | Outpatient (CLI) | payer OTHER, SELFPAY ==
--- NOTE | 2024-07-05 06:27 | ECHOD_ITS ---
Version 2 Reason For Study: HTN Procedure This was a 2D Doppler, Color Flow transthoracic echocardiogram. Exam performed in department. Left Ventricle Normal LV size. Mild concentric left ventricular hypertrophy. The left ventricular ejection fraction is 60 %. No regional wall motion abnormalities noted. Right Ventricle Normal RV size. Normal systolic function. Atria Normal left atrium. Normal right atrium. Hypermobile atrial septum. Mitral Valve Normal mitral valve. Tricuspid Valve Normal tricuspid valve. Aortic Valve Trisinus/trileaflet aortic valve. Mild focal aortic valve calcification. Pulmonic Valve Normal pulmonic valve. Great Vessels Mildly dilated aortic root. The pulmonary artery is normal size. Inferior vena cava collapse with respiration. Pericardium/Pleural No pericardial effusion. MMode/2D Measurements & Calculations LVIDd: 4.2 cm IVSd: 1.3 cm asc Aorta Diam: 3.7 cm LVIDs: 2.9 cm LVPWd: 1.2 cm RVDd: 3.6 cm FS: 32.0 % LAV(MOD-bp): 53.5 ml LVAd ap4: 39.0 cm2 LVAd ap2: 34.8 cm2 LAV(MOD-bp) Indexed: 23.8 ml/m2 LVLd ap4: 9.8 cm LVLd ap2: 9.7 cm LAV(MOD-sp2): 60.5 ml EDV(MOD-sp4): 127.9 ml EDV(MOD-sp2): 105.6 ml LAV(MOD-sp4): 47.3 ml EDV(sp4-el): 131.6 ml EDV(sp2-el): 106.0 ml LVAs ap4: 21.5 cm2 LVAs ap2: 20.1 cm2 LVLs ap4: 8.6 cm LVLs ap2: 8.7 cm ESV(MOD-sp4): 45.6 ml ESV(MOD-sp2): 41.3 ml ESV(sp4-el): 45.6 ml ESV(sp2-el): 39.3 ml EF(MOD-sp4): 64.4 % EF(MOD-sp2): 60.9 % EF(sp4-el): 65.4 % SV(MOD-sp4): 82.3 ml SV(MOD-sp2): 64.3 ml SV(sp4-el): 86.0 ml SI(MOD-sp4): 36.6 ml/m2 SI(MOD-sp2): 28.6 ml/m2 Ao sinus diam: 4.[address] Junction: 3.3 cm LA A4 area: 18.2 cm2 LA dimension(2D): 4.2 cm TAPSE: 1.6 cm RA A4 area: 16.9 cm2 Time Measurements MV dec time: 0.27 sec Doppler Measurements & Calculations MV E max dheeraj: 61.6 cm/sec Lat Peak E' Dheeraj: 11.3 cm/sec Med Peak E' Dheeraj: 6.3 cm/sec MV A max dheeraj: 61.0 cm/sec E/E' lat: 5.4 E/E' med: 9.8
== END | disposition home or self-care (01) ==
LOC: CVS 06:25
PROVIDERS: PCP Family Medicine; Referring Provider Internal Medicine Cardiovascular Disease; Visit Provider Internal Medicine Cardiovascular Disease
DX: I10 Essential (primary) hypertension (principal); R06.02 Shortness of breath
CPT/HCPCS: 78452; 93017; 93306; A9500; A4216

== ENCOUNTER 2024-11-16 14:30 | Outpatient (RCR) | payer OTHER, SELFPAY ==
--- NOTE | 2024-10-18 13:54 | HP.PTEVAL ---
Patient's Visit Information Visit Information Visit Information: NIRU GUZMAN is a 49 year old M referred to Physical Therapy by Dr. Breanna Ramos DPM with a diagnosis of Metatarsalgia. Date of Evaluation: 10/18/24 Physical Therapist: Darnell Rawls, PT, ATC Visit Plan Frequency: 1x/Week Duration: 1 Week Plan: Properly fit pt for orthotics and educate pt on orthotic and skin care Subjective Subjective: Pt reports he has had B foot pain for several years. Pt notes he has been going to his director cardiovascular for this pain which has helped some, but pt notes he always has pain. Pt reports his feet hurt under the second metatarsal heads. Pt reports he has numbness on lateral aspects of B feet. Pt notes he is unable to ambulate barefoot secondary to his foot pain. Pt denies having orthotics in the past. Pt reports he works as a [employer], and is on his feet all day. Pt reports his foot pain is 7/10 at rest, 10/10 at worst. Pt notes his feet hurt all the time, but he fights through the pain in order to make it through his work day. Pain B feet: Pain Intensity (Out of 10): 7 Pain Intensity Range: 10 Objective Objective: Neuro: B LE sensation is WNL to light touch. Observation: Pt stands with significant pes planus. ROM: R ankle DF= 10, PF= 45 degrees; L ankle DF= 10, PF= 45 degrees Gait: Pt ambulates with early pronation of foot in stance phase secondary to colapse in arch. Early toe off noted Goals Goal 1:: Properly fit pt for orthotics and educate pt on orthotic and skin care Goal Time Frame: 1 Week Rehabilitation Potential Physical Therapy Diagnosis: Pt has difficulty with WBing activity secondary to metatarsalgia Rehabilitation Potential: Good Anticipated Interventions Patient/Client Instruction: Educate patient on: Condition and Plan of Care For the Purpose of:: To decrease pain, To increase tolerance to activity/condition/position and To improve gait and locomotor functions Text: Thank you for the opportunity to evaluate your patient. For Medicare and Medicare HMO plans, please review the plan of care and approve it. It will need to be FAXED BACK to us at [phone] for Medicare purposes. For Medicare only, by signing this I certify the plan of care. Please let me know if there are questions or concerns regarding this plan of care. Physician Signature: Date:
--- NOTE | 2024-11-16 15:01 | HP.PTDCSUM ---
Discharge Summary D/C summary: It has been my pleasure to treat NIRU GUZMAN referred by Dr. Breanna Ramos, JENNIFER, with the diagnosis of Metatarsalgia for a total of 2 visit(s). Discharge Date: Please see the following information for a summary of their discharge status. Subjective Subjective: Pt reports he is ready for orthotics Pain B feet: Pain Intensity (Out of 10): 0 Objective Objective/Function: Orthotics fit to shoes Goals Goal 1:: Properly fit pt for orthotics and educate pt on orthotic and skin care Plan Plan: Discharge D/C Information d/c sentence: If there are questions or concerns regarding this patient's physical therapy, please feel free to call me at [phone]. Thank you for the referral of this patient. Sincerely, Darnell Rawls, PT, ATC
== END 2024-11-16 19:00 | disposition home or self-care (01) ==
LOC: PT 14:30
PROVIDERS: PCP Family Medicine; Referring Provider Podiatrist; Visit Provider Podiatrist
DX: M77.40 Metatarsalgia, unspecified foot (principal)
CPT/HCPCS: 97161; 97760; 97763

== ENCOUNTER 2024-12-12 07:40 | Outpatient (CLI) | payer OTHER, SELFPAY ==
--- NOTE | 2024-12-12 07:43 | CT_ITS ---
PROCEDURE: LIMITED CHEST CT CARDIAC ONLY 12/12/2024 REASON FOR EXAM: SYNCOPE TECHNIQUE: LIMITED CHEST CT CARDIAC ONLY One or more dose reduction techniques were used (e.g., Automated exposure control, adjustment of the mA and/or kV according to patient size, use of iterative reconstruction technique). RADIATION DOSE SUMMARY: CTDlvol: 12.19 mGy DLP: 219.42 mGycm COMPARISON: None FINDINGS: Coronary artery calcification. Small benign-appearing mediastinal lymph nodes. The lungs are clear. CT/Limited Chest CT Cardiac Only IMPRESSION: Coronary artery calcification. The lungs are clear. Reading Location: [facility]
--- OUTSIDE RECORDS SUMMARY | 2024-12-12 08:04 | XMS RPT_ITS | CCD ---
Author Organization [facility] CliniSywa Care Team Providers Care Door Operator Name Role Phone WINSTON DAMON Consulting Unavailable BRIAN ALFONSO MD Attending Unavailable BRIAN ALFONSO MD Primary Care Unavailable BRIAN ALFONSO MD Admitting Unavailable WINSTON DAMON Referring Unavailable PROVIDER, UNKNOWN Consulting Unavailable Dr. Winston Damon Primary Care Provider Dr. Winston Damon Referring Provider MD Miguel Angel Urias Attending Provider Dr. Jesse Thayer Attending Provider Dr. Winston Damon DO Primary Care Provider Dr. Winston Damon DO Referring Provider Miguel Angel Urias MD Attending Provider Richard DPM, Dr. Carlos Attending Provider Richard DPM, Dr. Carlos Referring Provider Richard DPM, Dr. Carlos Attending Provider Richard DPM, Dr. Carlos Referring Provider Miguel Angel Urias Attending Unavailable Nelson, Winston Referring Unavailable Nelson, Winston Primary Care Unavailable Nelson, Winston Primary Care Unavailable Miguel Angel Urias Attending Unavailable Nelson, Winston Referring Unavailable Nelson, Winston Primary Care Unavailable Jesse Thayer Attending Unavailable Nelson, Winston Referring Unavailable Nelson, Winston Primary Care Unavailable Miguel Angel Urias Attending Unavailable Nelson, Winston Referring Unavailable Nelson, Winston Primary Care Unavailable Jesse Thayer Attending Unavailable Jeovany, Jesse Referring Unavailable Nelson, Winston Primary Care Unavailable JeovanyJesse turpin Attending Unavailable Nelson, Winston Primary Care Unavailable NelsonWinston Attending Unavailable Nelson, Winston Referring Unavailable Nelson, Winston Primary Care Unavailable Miguel Angel Urias Attending Unavailable Miguel Angel Urias Referring Unavailable Nelson, Winston Primary Care Unavailable Miguel Angel Urias Attending Unavailable Miguel Angel Urias Referring Unavailable Jeovany, Basile Referring Unavailable Nelson, Winston Primary Care Unavailable Jeovany, Jesse Attending Unavailable Horn, Breanna Attending Unavailable Horn, Breanna Referring Unavailable Nelson, Winston Primary Care Unavailable Nelson, Winston Primary Care Unavailable Jeovany, Basile Attending Unavailable Jeovany, Basile Referring Unavailable Nelson, Winston Primary Care Unavailable Nelson, Winston Attending Unavailable Nelson, Winston Referring Unavailable Allergies Allergy Classification Reported Allergen(s) Allergy Type Date of Onset Reaction(s) Facility (6 sources) oxyCODONE Drug Allergy 06-30-2022 Nausea [facility] (6 sources) Penicillins Allergy to substance 06-30-2022 Swelling [facility] Comment on above: HIVES (1 source) Penicillins Drug allergy (disorder) [facility] (3 sources) Lisinopril Drug Allergy 10-01-2024 Angioedema [facility] (1 source) Lisinopril Drug Allergy 10-01-2024 [facility] (1 source) oxyCODONE Drug Allergy 10-01-2024 [facility] (1 source) Penicillins Drug allergy (disorder) 10-01-2024 [facility] Rep[facility] Medications Current Medications Medication Drug Class(es) Dates Sig (Normalized) Sig (Original) amLODIPine 10 mg oral tablet (9 sources) Dihydropyridine Calcium Channel [place] Start: 06-13-2024 take 1 tablet by mouth once daily Amlodipine 10 mg tablet Active 10 mg PO daily June 13, 2024 1:00am Start: 11-26-2019 End: 05-31-2024 take 2 tablets by mouth once daily Amlodipine 5 MG tablet Discontinued 10 mg PO DAILY November 26, 2019 12:00am May 31, 2024 12:21pm Start: 11-26-2019 take 10 mg by mouth once daily Amlodipine Active 10 MG PO DAILY November 26, 2019 12:00am hydroCHLOROthiazide 12.5 mg oral tablet (9 sources) Thiazide Diuretic Start: 06-13-2024 take 1 tablet by mouth once daily in the morning Hydrochlorothiazide 12.5 mg tablet Active 12.5 mg PO EVERY MORNING 60 June 13, 2024 1:00am Start: 06-22-2022 End: 05-31-2024 take 1 tablet by mouth once daily Hydrochlorothiazide 25 mg tablet Discontinued 25 mg PO DAILY June 22, 2022 1:00am May 31, 2024 12:21pm 24 hr metoprolol succinate 100 mg extended release oral tablet (9 sources) beta-Adrenergic [place] Start: 05-31-2024 take 1 tablet by mouth once daily Metoprolol Succinate 100 mg tablet extended release 24 hr Active 100 mg PO daily May 31, 2024 1:00am Start: 06-23-2022 End: 05-31-2024 take 1 tablet by mouth once daily Metoprolol Tartrate 50 mg Tablet Discontinued 50 mg PO DAILY June 23, 2022 1:00am May 31, 2024 12:21pm Multivitamin tablet (3 sources) Start: 06-13-2024 Multivitamin t ablet Active 1 {tbl} PO daily June 13, 2024 1:00am omeprazole 20 mg delayed release oral capsule (6 sources) Proton Pump Inhibitor Start: 11-26-2019 take 1 capsule by mouth once daily Omeprazole 20 MG capsule Active 20 mg PO DAILY November 26, 2019 12:00am Completed/Discontinued Medications Medication Drug Class(es) Dates Sig (Normalized) Sig (Original) aspirin 81 mg delayed release oral tablet (3 sources) Platelet Aggregation Inhibitor, Nonsteroidal Anti-inflammatory Drug Start: 05-31-2024 End: 06-13-2024 take 1 tablet by mouth once daily Aspirin (Adult Aspirin Regimen) 81 mg tablet,delayed release (DR/EC) Discontinued 81 mg PO daily May 31, 2024 1:00am June 13, 2024 5:26pm LORazepam 1 mg oral tablet (3 sources) Benzodiazepine Start: 05-31-2024 End: 06-13-2024 take 1 tablet by mouth once daily as needed Lorazepam 1 mg tablet Discontinued 1 mg PO daily as needed May 31, 2024 1:00am June 13, 2024 4:57pm losartan potassium 25 mg oral tablet (6 sources) Angiotensin 2 Receptor [place] Start: 06-13-2024 End: 06-13-2024 take 4 tablets by mouth once daily Losartan 25 mg tablet Discontinued 100 mg PO daily June 13, 2024 4:57pm June 13, 2024 5:26pm Start: 05-31-2024 End: 06-13-2024 take 3 tablets by mouth once daily Losartan 25 mg tablet Discontinued 75 mg PO daily May 31, 2024 1:00am June 13, 2024 4:57pm Problems Active Problems Problem Classification Problem Date Documented Da te Episodic/Chronic Cardiac and circulatory congenital anomalies (4 sources) Patent foramen ovale; Translations: [Patent foramen ovale] Onset: 06-13-2024 05-31-2024 Chronic Esophageal disorders (3 sources) Gastric reflux; Translations: [Gastro-esophageal reflux disease without esophagitis] 05-31-2024 Chronic Comment on above: ON MED Essential hypertension (5 sources) Hypertensive disorder; Translations: [Essential (primary) hypertension] Onset: 07-13-2024 05-31-2024 Chronic Comment on above: CONTROLLED WITH MEDS /PCP ADDED METOPROLOL 50MG DAILY Fracture of upper limb (6 sources) Closed fracture finger distal phalanx, tuft ; Translations: [Displaced fracture of distal phalanx of unspecified finger, initial encounter for closed fracture] 08-01-2020 Episodic Other connective tissue disease (6 sources) Tear of right rotator cuff; Translations: [Unspecified rotator cuff tear or rupture of right shoulder, not specified as traumatic] 07-05-2024 Episodic Other connective tissue disease (1 source) Unspecified rotator cuff tear or rupture of right shoulder, not specified as traumatic; Translations: [Unspecified rotator cuff tear or rupture of right shoulder, not specified as traumatic] Onset: 10-01-2024 Episodic Other non-traumatic joint disorders (6 sources) Pain in left shoulder; Translations: [Left shoulder pain] 01-31-2023 Episodic Other non-traumatic joint disorders (6 sources) Pain in right shoulder; Translations: [Right shoulder pain] Onset: 11-06-2024 01-31-2023 Episodic Other screening for suspected conditions (not mental disorders or infectious disease) (6 sources) Patient encounter status; Translations: [Encounter for screening for malignant neoplasm of intestinal tract, unspecified] 04-20-2021 Episodic Residual codes; unclassified (3 sources) Sleep apnea; Translations: [Sleep apnea, unspecified] 05-31-2024 Chronic Sprains and strains (13 sources) Rupture of tendon of biceps, long head; Translations: [Strain of muscle, fascia and tendon of long head of biceps, left arm, initial encounter] Onset: 10-01-2024 04-21-2023 Episodic Past or Other Problems Problem Classification Problem Date Documented Da te Episodic/Chronic Syncope (1 source) Syncope and collapse; Translations: [Syncope and collapse] Onset: 07-13-2024 Episodic Results Test Name Value Interpretation Reference Range Facility PT D/C Summary (1)on 025 PT D/C Summary (1) [facility] [address] [place] [address]. [address] [place] [address] / REHABILITATION SERVICES DISCHARGE SUMMARY MR#: [id number] Acct: [id number] Name: NIRU GUZMAN Rep #: [id number] : 1975 49 From: Darnell Rawls PT, ATC Referring Dr.: JENNIFER Ramos Status: REG RCR [facility] Discharge Summary D/C summary: It has been my pleasure to treat NIRU GUZMAN referred by Dr. Breanna Ramos, JENNIFER, with the diagnosis of Metatarsalgia for a total of 2 visit(s). Discharge Date: Please see the following information for a summary of their discharge status. Subjective Subjective: Pt reports he is ready for orthotics Pain B feet: Pain Intensity (Out of 10): 0 Objective Objective/Function: Orthotics fit to shoes Goals Goal 1:: Properly fit pt for orthotics and educate pt on orthotic and skin care Plan Plan: Discharge D/C Information d/c sentence: If there are questions or concerns regarding this patient's physical therapy, please feel free to call me at [phone]. Thank you for the referral of this patient. Sincerely, Darnell Rawls, PT, ATC 11/16/24 1501 CC: JENNIFER Ramos; Dr. Winston Damon, [facility] Signed Normal [facility] Inital Evaluation (1) - PTon 10-18-2024 Inital Evaluation (1) - PT [facility] [address] [place] [address]. [address] [place] [address] / REHABILITATION SERVICES INITIAL EVALUATION MR#: [id number] Acct: [id number] Name: NIRU GUZMAN Rep #: [id number] : 1975 49 From: Darnell Rawls PT, ATC Referring Dr.: Dr. Breanna Ramos DPM Status: REG RCR [facility] INSURANCE Patient's Visit Information Visit Information Visit Information: NIRU GUZMAN is a 49 year old M referred to Physical Therapy by Dr. Breanna Ramos DPM with a diagnosis of Metatarsalgia. Date of Evaluation: 10/18/24 Physical Therapist: Darnell Rawls, PT, ATC Visit Plan Frequency: 1x/Week Duration: 1 Week Plan: Properly fit pt for orthotics and educate pt on orthotic and skin care Subjective Subjective: Pt reports he has had B foot pain for several years. 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 Pt reports his feet hurt under the second metatarsal heads. Pt reports he has numbness on lateral aspects of B feet. Pt notes he is unable to ambulate barefoot secondary to his foot pain. Pt denies having orthotics in the past. 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 Pt reports his foot pain is 7/10 at rest, 10/10 at worst. Pt notes his feet hurt all the time, but he fights through the pain in order to make it through his work day. Pain B feet: Pain Intensity (Out of 10): 7 Pain Intensity Range: 10 Objective Objective: Neuro: B LE sensation is WNL to light touch. Observation: Pt stands with significant pes planus. ROM: R ankle DF= 10, PF= 45 degrees; L ankle DF= 10, PF= 45 degrees Gait: Pt ambulates with early pronation of foot in stance phase secondary to colapse in arch. Early toe off noted Goals Goal 1:: Properly fit pt for orthotics and educate pt on orthotic and skin care Goal Time Frame: 1 Week Rehabilitation Potential Physical Therapy Diagnosis: Pt has difficulty with WBing activity secondary to metatarsalgia Rehabilitation Potential: Good Anticipated Interventions Patient/Client Instruction: Educate patient on: Condition and Plan of Care For the Purpose of:: To decrease pain, To increase tolerance to activity/condition/posit ion and To improve gait and locomotor functions Text: Thank you for the opportunity to evaluate your patient. For Medicare and Medicare HMO plans, please review the plan of care and approve it. It will need to be FAXED BACK to us at [phone] for Medicare purposes. For Medicare only, by signing this I certify the plan of care. Please let me know if there are questions or concerns regarding this plan of care. Physician Signature: Date: ____ 10/18/24 5372 CC: JENNIFER Ramos; Dr. Winston Damon, [facility] Signed Normal [facility] Orthopedic Visit Reporton Orthopedic Visit Report [facility] [address] [place] [address] OFFICE VISIT Date of Service: 10/01/24 MR#: [id number] Acct: [id number] Name: NIRU GUZMAN Rep #: [id number] : 1975 Provider: Dr. Miguel Angel black MD Age/Sex: 49/M [place] [facility] [place] Status: Signed with Addenda ADDENDUM by SUNNY Cronin on 10/01/24 at 0838 Office Procedure Documentation entered by Jose M Cronin MA 10/01/24 08:38: Ortho Injections Injections Yes Subacromial Injection Is this a patient provided medication?: No Details: Obtained consent for injection. Under sterile conditions, injected the patients right shoulder with 2cc Kenalog, and 4cc Bupivacaine. The patient tolerated the injection well without any noted complication. Patient should call our office if redness develops, pain worsens or if they have any concerns. Office Meds Kenalog 40 mg/mL suspension for injection Performing Provider: Miguel Angel Urias MD Performing Location: [facility] Administered by: Miguel Angel Urias MD on 10/01/24 08:36 Dose Route Admin Location Dispensed Lot Number Expiration Date ONIEL Mariee ufacturer 40 mg intra-articular Right shoulder 1 mL [id number] 10/25/25 4428-8528-07 [facility] Date cc: * Signed Intake Vital Signs 06/13/24 15:53 10/01/24 08:11 Height 5 ft 9 in 5 ft 9 in Weight: 235 lb BMI 34.7 Intake Visit Reasons: RIGHT SHOULDER Chief Complaint: Cortisone shot right shoulder Accompanied by: Self Is patient in pain?: Yes Pain scale (1-10): 8 Allergies lisinopril Allergy (Severe, Verified 10/01/24 08:15) Angioedema Penicillins Allergy (Verified 10/01/24 08:15) Swelling oxycodone (From Percocet) Adverse Reaction (Verified 10/01/24 08:15) Nausea Medications ???Medication ???Instructions ???Recorded ???Confirmed ???Type omeprazole 20 mg capsule,delayed 20 mg PO DAILY 11/26/19 10/01/24 H istory release metoprolol succinate 100 mg 100 mg PO QDAY 05/31/24 10/01/24 H istory tablet,extended release 24 hr amlodipine 10 mg tablet 10 mg PO QDAY #90 tabs 06/13/24 Rx hydrochlorothiazide 12.5 mg tablet 12.5 mg PO QAM #60 tabs 06/13/24 10/01/24 Rx multivitamin 1 tab PO QDAY 06/13/24 10/01/24 Hi story Have you fallen in the past year?: No PFSH Medical History Rupture of right subscapularis tendon Right rotator cuff tear PFO (patent foramen ovale) Rupture of left long head biceps tendon Left shoulder pain Right shoulder pain CPAP (continuous positive airway pressure) dependence Sleep apnea Non-smoker Arthritis Excessive bleeding Gastric reflux Hypertension Surgical History History of excision of lesion Hx of arthroscopic knee surgery Hx of total hip arthroplasty Family History Mother Heart disease Hypertension Hypercholesteremia Father Alcoholism Brother Colon cancer Hypertension Hypercholesteremia Sister Hypertension Grandmother Hypertension Thyroid disorder Grandfather Colon cancer Social History Smoking Status: Never smoker substance use type: does not use HPI RIGHT SHOULDER Details: This documentation accurately reflects the service provided and the decisions made by me, Dr. Miguel Angel Urias MD 10/01/24 0811. Part of today???s visit was documented by [ ], acting as scribe. NIRU GUZMAN is a 49 year old M here today for FU right shoulder rotator cuff tear. The MRI shows a 1.8 x 0.9 cm full-thickness tear of the distal supraspinatus tendon and a full-thickness tear of the distal subscapularis tendon, measuring 3.6 cm in length. Had injection 4 months ago. It wore off. Thinking surgery in May. Coding Level of Care Code Attention Project Builder Diagnoses Right rotator cuff tear M75.101 Rupture of right subscapularis tendon S46.811A Comment 80058 and CPT inject major joint Assessment and Plan Assessment and Plan (1) Right rotator cuff tear: Status: Acute Plan: NIRU GUZMAN is a 49 year old M here today for FU right shoulder rotator cuff tear. The MRI shows a 1.8 x 0.9 cm full-thickness tear of the distal supraspinatus tendon and a full-thickness tear of the distal subscapularis tendon, measuring 3.6 cm in length. Had injection 4 months ago. FU PRN. Pros and cons risks and benefits of a right shoulder subacromial steroid injection were discussed. Patient wished to proceed. Risks include but not limited to infection, pain, stiffness, damage to other structures, neurovascular injury, wear further tear of the tendon and other st (more content not included)... Normal [facility] Echo Completeon 07-05-2024 Echo [facility] [place] [address] Echo Complete 07/05/24 0808 MR#: [id number] Acct: [id number] Name: NIRU GUZMAN Rep #: [id number] : 1975 49 From: Jesse Thayer MD Attending Dr: Dr. Jesse Thayer MD Status: SUMANTH Fadi BRAXTON Ordering Dr: Jesse Thayer MD Date: 07/05/24 Location: [facility] Sex: M C Admitted: Version 2 Reason For Study: HTN Procedure This was a 2D Doppler, Color Flow transthoracic echocardiogram. Exam performed in department. Left Ventricle Normal LV size. Mild concentric left ventricular hypertrophy. The left ventricular ejection fraction is 60 %. No regional wall motion abnormalities noted. Right Ventricle Normal RV size. Normal systolic function. Atria Normal left atrium. Normal right atrium. Hypermobile atrial septum. Mitral Valve Normal mitral valve. Tricuspid Valve Normal tricuspid valve. Aortic Valve Trisinus/trileaflet aortic valve. Mild focal aortic valve calcification. Pulmonic Valve Normal pulmonic valve. Great Vessels Mildly dilated aortic root. The pulmonary artery is normal size. Inferior vena cava collapse with respiration. Pericardium/Pleural No pericardial effusion. MMode/2D Measurements Calculations LVIDd: 4.2 cm IVSd: 1.3 cm asc Aorta Diam: 3.7 cm LVIDs: 2.9 cm LVPWd: 1.2 cm RVDd: 3.6 cm FS: 32.0 % LAV(MOD-bp): 53.5 ml LVAd ap4: 39.0 cm2 LVAd ap2: 34.8 cm2 LAV(MOD-bp) Indexed: 23.8 ml/m2 LVLd ap4: 9.8 cm LVLd ap2: 9.7 cm LAV(MOD-sp2): 60.5 ml EDV(MOD-sp4): 127.9 ml EDV(MOD-sp2): 105.6 ml LAV(MOD-sp4): 47.3 ml EDV(sp4-el): 131.6 ml EDV(sp2-el): 106.0 ml LVAs ap4: 21.5 cm2 LVAs ap2: 20.1 cm2 LVLs ap4: 8.6 cm LVLs ap2: 8.7 cm ESV(MOD-sp4): 45.6 ml ESV(MOD-sp2): 41.3 ml ESV(sp4-el): 45.6 ml ESV(sp2-el): 39.3 ml EF(MOD-sp4): 64.4 % EF(MOD-sp2): 60.9 % EF(sp4-el): 65.4 % SV(MOD-sp4): 82.3 ml SV(MOD-sp2): 64.3 ml SV(sp4-el): 86.0 ml SI(MOD-sp4): 36.6 ml/m2 SI(MOD-sp2): 28.6 ml/m2 Ao sinus diam: 4.[address] Junction: 3.3 cm LA A4 area: 18.2 cm2 LA dimension(2D): 4.2 cm TAPSE: 1.6 cm RA A4 area: 16.9 cm2 Time Measurements MV dec time: 0.27 sec Doppler Measurements Calculations MV E max dheeraj: 61.6 cm/sec Lat Peak E' Dheeraj: 11.3 cm/sec Med Peak E' Dheeraj: 6.3 cm/sec MV A max dheeraj: 61.0 cm/sec E/E' lat: 5.4 E/E' med: 9.8 MV E/A: 1.0 MV dec slope: 230.1 cm/sec2 Ao V2 max: 162.0 cm/sec LV V1 max: 117.7 cm/sec Ao max P.5 mmHg LV V1 max P.5 mmHg Ao V2 mean: 103.0 cm/sec LV V1 mean P.9 mmHg Ao mean P.1 mmHg LV V1 mean: 77.6 cm/sec Ao V2 VTI: 28.6 cm LV V1 VTI: 26.3 cm AV (velocity ratio): 0.92 PA V2 max: 88.2 cm/sec ECHO/Echo Complete Interpretation Summary Hypermobile atrial septum. Normal LV size. The left ventricular ejection fraction is 60 %. Mild concentric left ventricular hypertrophy. Mildly dilated aortic root. Mild focal aortic valve calcification. The global longitudinal strain is borderline abnormal. Structurally normal valves. Ordering Physician: Jesse Thayer Referring Physician: Winston Damon Performed By: Nuria Alexander, TIFFANIE 07/05/24 1334 Date Jesse Thayer MD CC: Dr. Jesse Thayer MD; Dr. Winston Damon, Date Dictated: 07/05/24 0808 Date Transcribed: 07/05/24 1119 Family Development Extension Specialist: Signed Normal [facility] Orthopedic Visit Reporton Orthopedic Visit Report [facility] [address] [place] [address] OFFICE VISIT Date of Service: 07/05/24 MR#: [id number] Acct: [id number] Name: MEGANNIRU LANA Rep #: [id number] : 1975 Provider: Dr. Miguel Angel black MD Age/Sex: 49/M [place] [facility] [place] Status: Signed Intake Vital Signs 06/13/24 15:53 Height 5 ft 9 in Intake Visit Reasons: RIGHT SHOULDER Chief Complaint: MRI review Accompanied by: Self Is patient in pain?: No Allergies lisinopril Allergy (Severe, Verified 07/05/24 10:44) Angioedema Penicillins Allergy (Verified 07/05/24 10:44) Swelling oxycodone (From Percocet) Adverse Reaction (Verified 07/05/24 10:44) Nausea Medications ???Medication ???Instructions ???Recorded ???Confirmed ???Type omeprazole 20 mg capsule,delayed 20 mg PO DAILY 11/26/19 07/05/24 History release metoprolol succinate 100 mg 100 mg PO QDAY 05/31/24 07/05/24 History tablet,extended release 24 hr amlodipine 10 mg tablet 10 mg PO QDAY #90 tabs 06/13/24 07/05/24 Rx hydrochlorothiazide 12.5 mg tablet 12.5 mg PO QAM #60 tabs 06/13/24 07/05/24 Rx multivitamin 1 tab PO QDAY 06/13/24 07/05/24 History PFSH Medical History (Updated 07/05/24 @ 09:44 by Miguel Angel Urias MD) Rupture of right subscapularis tendon Right rotator cuff tear PFO (patent foramen ovale) Rupture of left long head biceps tendon Left shoulder pain Right shoulder pain CPAP (continuous positive airway pressure) dependence Sleep apnea Non-smoker Arthritis Excessive bleeding Gastric reflux Hypertension Surgical History History of excision of lesion Hx of arthroscopic knee surgery Hx of total hip arthroplasty Family History Mother Heart disease Hypertension Hypercholesteremia Father Alcoholism Brother Colon cancer Hypertension Hypercholesteremia Sister Hypertension Grandmother Hypertension Thyroid disorder Grandfather Colon cancer Social History Smoking Status: Never smoker substance use type: does not use HPI RIGHT SHOULDER Details: This documentation accurately reflects the service provided and the decisions made by me, Dr. Miguel Angel Urias MD 07/05/24 0942. Part of today???s visit was documented by [ ], acting as scribe. NIRU GUZMAN is a 49 year old M here today for follow-up right shoulder MRI, had a cortisone injection 5 weeks ago as well. Patient is doing quite well in terms of the shoulder pain he has no pain or difficulties with the shoulder at this point cortisone injection seem to work well. Supplemental Info [facility] Imaging Services [address] [place] [address] Upper Ext Joint Only(Routine) MR#: [id number] Acct: [id number] Name: NIRU GUZMAN Rep #: [id number] : 1975 M 49 From: Valente Bang MD PCP: Dr. Winston Damon, DO Status: REG CLI Study: Upper Ext Joint Only(Routine) Date of Exam: 07/02/24 Exam# [id number] Ordering Dr: Miguel Angel Urias MD [id number] STUDY: MRI RIGHT SHOULDER REASON FOR EXAM: Male, 49 years old. Pain, rule out cuff tear. TECHNIQUE: Standardized fat and water weighted pulse sequences were obtained in all 3 orthogonal planes. COMPARISON: None. FINDINGS: There is a full-thickness tear of the distal supraspinatus tendon, overall measuring 1.8 cm in length (coronal T2 series 5 images 11-14) and 0.9 cm in width (sagittal T2 series 6 images 10-11). Normal infraspinatus tendon. There is a full-thickness tear of the distal subscapularis tendon, measuring 3.6 cm in length. Normal teres minor tendon. Normal supraspinatus muscle. Normal infraspinatus muscle. Normal subscapularis muscle. Normal teres minor muscle. There is a tiny glenohumeral joint effusion with fluid communicating into the subacromial-subdeltoid bursa. There is glenohumeral arthrosis with a tear of the posterior glenoid labrum. Normal humeral head and visualized proximal humerus. Normal biceps labral complex. Normal intracapsular long biceps tendon. Normal rotator interval. There is hypertrophic acromioclavicular arthrosis, with inferior osteophyte formation, with effacement of the torn supraspinatus tendon (coronal T2 series 5 image 14). There is a Type II morphology (curved), with a neutral orientation. Normal visualized coracohumeral and coracoacromial ligaments. Normal quadrilateral space. Normal axillary space. Normal deltoid muscle. Normal trapeziu (more content not included)... Normal [facility] Stress Reporton 07-05-2024 Stress Report [facility] Cardiovascular Services [address] [place] [address] MR#: [id number] Acct: [id number] Name: NIRU GUZMAN Rep #: [id number] : 1975 49 From: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 100.0100, L500.4050, L501.9985, L500.4100, L501.9100, L501.9910, L502.0250 #### [facility] [address] [place], [address] Platelet mean volume (Bld) [Entitic vol] 9.2 fL Normal 6.2-12.0 [facility] Comment on above: Performed By: #### L 100.0100, L500.4050, L501.9985, L500.4100, L501.9100, L501.9910, L502.0250 #### [facility] [address] [place], [address] Platelets (Bld) [#/Vol] 221 10*3/uL Normal 150-450 [facility] Comment on above: Performed By: #### L 100.0100, L500.4050, L501.9985, L500.4100, L501.9100, L501.9910, L502.0250 #### [facility] [address] [place], [address] RBC (Bld) [#/Vol] 4.82 10*6/uL Normal 4.6-6.2 [facility] Comment on above: Performed By: #### L 100.0100, L500.4050, L501.9985, L500.4100, L501.9100, L501.9910, L502.0250 #### [facility] [address] [place], [place], [phone] (163) RDW SD 39.8 fl Normal 35.1-43.9 [facility] Comment on above: Performed By: #### L 100.0100, L500.4050, L501.9985, L500.4100, L501.9100, L501.9910, L502.0250 #### [facility] [address] [place], [place], [id number] WBC (Bld) [#/Vol] 5.6 10*3/uL Normal 4.4-11.0 [facility] Comment on above: Performed By: #### L 100.0100, L500.4050, L501.9985, L500.4100, L501.9100, L501.9910, L502.0250 #### [facility] [address] [place], [place], [id number] Comprehensive Met[facility] Prof [facility] 02-02-2024 Albumin [Mass/Vol] 3.7 g/dL Normal 3.2-5.0 [facility] Comment on above: Performed By: #### L 100.0100, L500.4050, L501.9985, L500.4100, L501.9100, L501.9910, L502.0250 #### [facility] [address] [place], [place], [id number] Albumin/Globulin [Mass ratio] 0.9 {ratio} Normal 0.9-2.4 [facility] Comment on above: Performed By: #### L 100.0100, L500.4050, L501.9985, L500.4100, L501.9100, L501.9910, L502.0250 #### [facility] [address] [place], [address] ALK P 103 U/L Normal 45-117 [facility] Comment on above: Performed By: #### L 100.0100, L500.4050, L501.9985, L500.4100, L501.9100, L501.9910, L502.0250 #### [facility] [address] [place], [address] ALT [Catalytic activity/Vol] 29 U/L Normal 16-61 [facility] Comment on above: Performed By: #### L 100.0100, L500.4050, L501.9985, L500.4100, L501.9100, L501.9910, L502.0250 #### [facility] [address] [place], [address] AST [Catalytic activity/Vol] 22 U/L Normal 15-37 [facility] Comment on above: Performed By: #### L 100.0100, L500.4050, L501.9985, L500.4100, L501.9100, L501.9910, L502.0250 #### [facility] [address] [place], [place], [id number] Bilirubin [Mass/Vol] 0.70 mg/dL Normal 0.20-1.00 [facility] Comment on above: Result Comment: For patients on eltrombopag therapy, use of Dimension [place] TBIL is not recommended. Performed By: #### L 100.0100, L500.4050, L501.9985, L500.4100, L501.9100, L501.9910, L502.0250 #### [facility] [address] [place], [address] BUN/CRE 7.1 RATIO Low 10-20 [facility] Comment on above: Performed By: #### L 100.0100, L500.4050, L501.9985, L500.4100, L501.9100, L501.9910, L502.0250 #### [facility] [address] [place], [address] CA,Total 9.6 mg/dL Normal 8.5-10.1 [facility] Comment on above: Performed By: #### L 100.0100, L500.4050, L501.9985, L500.4100, L501.9100, L501.9910, L502.0250 #### [facility] [address] [place], [address] Chloride [Moles/Vol] 105 mmol/L Normal 98-107 [facility] Comment on above: Performed By: #### L 100.0100, L500.4050, L501.9985, L500.4100, L501.9100, L501.9910, L502.0250 #### [facility] [address] [place], [address] CO2 [Moles/Vol] 26.0 mmol/L Normal 21.0-32.0 [facility] Comment on above: Performed By: #### L 100.0100, L500.4050, L501.9985, L500.4100, L501.9100, L501.9910, L502.0250 #### [facility] [address] [place], [address] Creatinine [Mass/Vol] 0.85 mg/dL Normal 0.70-1.30 [facility] Comment on above: Result Comment: The validity of the calculated GFR GFRAA in patients over 70 years has not been determined. Clinical correlation is essential. Performed By: #### L 100.0100, L500.4050, L501.9985, L500.4100, L501.9100, L501.9910, L502.0250 #### [facility] [address] [place], [address] EST GFR - AA 122 mL/min Normal >60 [facility] Comment on above: Result Comment: Afri can Libyan GFR Calc Performed By: #### L 100.0100, L500.4050, L501.9985, L500.4100, L501.9100, L501.9910, L502.0250 #### [facility] [address] [place], [place], [id number] (803) GAP 6 Normal 5-15 [facility] Comment on above: Performed By: #### L 100.0100, L500.4050, L501.9985, L500.4100, L501.9100, L501.9910, L502.0250 #### [facility] [address] [place], [address] GFR/1.73 sq M.predicted among non-blacks MDRD (S/P/Bld) [Vol rate/Area] 101 mL/min/{1.73_m2} Normal >60 [facility] Comment on above: Result Comment: Non- GFR Calc Performed By: #### L 100.0100, L500.4050, L501.9985, L500.4100, L501.9100, L501.9910, L502.0250 #### [facility] [address] [place], [address] Globulin (S) [Mass/Vol] 3.9 g/dL Normal 2.2-4.2 [facility] Comment on above: Performed By: #### L 100.0100, L500.4050, L501.9985, L500.4100, L501.9100, L501.9910, L502.0250 #### [facility] [address] [place], [address] Glucose [Mass/Vol] 95 mg/dL Normal 74-106 [facility] Comment on above: Performed By: #### L 100.0100, L500.4050, L501.9985, L500.4100, L501.9100, L501.9910, L502.0250 #### [facility] [address] [place], [address] Potassium [Moles/Vol] 3.9 mmol/L Normal 3.5-5.1 [facility] Comment on above: Performed By: #### L 100.0100, L500.4050, L501.9985, L500.4100, L501.9100, L501.9910, L502.0250 #### [facility] [address] [place], [address] Sodium [Moles/Vol] 137 mmol/L Normal 136-145 [facility] Comment on above: Performed By: #### L 100.0100, L500.4050, L501.9985, L500.4100, L501.9100, L501.9910, L502.0250 #### [facility] [address] [place], [address] T PROT 7.6 g/dL Normal 6.4-8.2 [facility] Comment on above: Performed By: #### L 100.0100, L500.4050, L501.9985, L500.4100, L501.9100, L501.9910, L502.0250 #### [facility] [address] [place], [address] Urea nitrogen [Mass/Vol] 6 mg/dL Low 7-18 [facility] Comment on above: Performed By: #### L 100.0100, L500.4050, L501.9985, L500.4100, L501.9100, L501.9910, L502.0250 #### [facility] [address] [place], [address] Hemoglobin A1con 02-02-2024 HbA1c (Bld) [Mass fraction] 5.0 % Normal 3.8-5.6 [facility] Comment on above: Result Comment: Norm al < 5.7 % Prediabetic 5.7 - 6.4 % Diabetic >or= 6.5 % Please note range changes. Performed By: #### L 100.0100, L500.4050, L501.9985, L500.4100, L501.9100, L501.9910, L502.0250 #### [facility] [address] [place], [address] Lipid Profileon 02-02-2024 Cholesterol [Mass/Vol] 175 mg/dL Normal 200 [facility] Comment on above: Result Comment: <200 mg/dL Desirable 200-240 mg/dL Borderline >240 mg/dL High Risk Performed By: #### L 100.0100, L500.4050, L501.9985, L500.4100, L501.9100, L501.9910, L502.0250 #### [facility] [address] [place], [address] Cholesterol in HDL [Mass/Vol] 43 mg/dL Normal [facility] Comment on above: Result Comment: The drugs N-Acetylcysteine and Metamizole may falsely depress this assay. Reference Range HDL <40 mg/dL Low HDL Cholesterol HDL >or= 60 mg/dL High HDL Cholesterol Performed By: #### L 100.0100, L500.4050, L501.9985, L500.4100, L501.9100, L501.9910, L502.0250 #### [facility] [address] [place], [address] Cholesterol in LDL [Mass/Vol] 112 mg/dL Normal 0-130 [facility] Comment on above: Performed By: #### L 100.0100, L500.4050, L501.9985, L500.4100, L501.9100, L501.9910, L502.0250 #### [facility] [address] [place], [address] Cholesterol in VLDL [Mass/Vol] 20 mg/dL Normal 5-40 [facility] Comment on above: Performed By: #### L 100.0100, L500.4050, L501.9985, L500.4100, L501.9100, L501.9910, L502.0250 #### [facility] [address] [place], [address] Triglyceride [Mass/Vol] 101 mg/dL Normal [facility] Comment on above: Result Comment: The drugs N-Acetylcysteine and Metamizole may falsely depress this assay. Serum Triglycerides Reference Interval Normal <150 mg/dL Borderline high 150 - 199 mg/dL High 200 - 499 mg/dL Very High > or = 500 mg/dL Performed By: #### L 100.0100, L500.4050, L501.9985, L500.4100, L501.9100, L501.9910, L502.0250 #### [facility] [address] [place], [place], [phone] ([phone]) Microalb:Creat Ratio,Random URon 02-02-2024 Creatinine [Mass/Vol] 119.00 mg/dL Normal NO RAN GE EST. [facility] Comment on above: Performed By: #### L 100.0100, L500.4050, L501.9985, L500.4100, L501.9100, L501.9910, L502.0250 #### [facility] [address] [place], [place], [phone] ([phone]) MALB:CRE 11.2 mg/g CRE Normal <30 mg/g CRE [facility] Comment on above: Performed By: #### L 100.0100, L500.4050, L501.9985, L500.4100, L501.9100, L501.9910, L502.0250 #### [facility] [address] [place], [place], [phone] (662) MICROALBUMIN,UR 13.3 mg/L Normal NO RANGE EST. [facility] Comment on above: Performed By: #### L 100.0100, L500.4050, L501.9985, L500.4100, L501.9100, L501.9910, L502.0250 #### [facility] [address] [place], [place], [address] PSA,Total - Annual Screenon 02-02-2024 PSA,TOT SCREEN 1.29 ng/mL Normal 0.00-4.00 [facility] Comment on above: Result Comment: This test was performed using the TPSA assay method for the [employer] chemistry system. Values obtained with different assay methods cannot be used interchangably. When changing PSA assays in the course of monitoring a patient, additional sequential testing should be carried out to confirm baseline values. Performed By: #### L 100.0100, L500.4050, L501.9985, L500.4100, L501.9100, L501.9910, L502.0250 #### [facility] [address] [place], [address] EMERGENCY REPORTon 3 EMERGENCY REPORT [facility] EMERGENCY ROOM REPORT NAME ACCOUNT SEX AGE ADMIT DISCHARGE PT MED. RECORD# NUMBER DATE DATE TYPE Tanna GUZMAN [id number] M 46 05/30/22 05/30/22 3 [place] [id number] ROOM: ER DATE OF : 1975 DICTATING PHYSICIAN: Brian Alfonso CHIEF COMPLAINT: Lip swelling. HISTORY OF PRESENT ILLNESS: The patient is a 46-year-old male who presents for evaluation of swelling of the bottom lip. The patient states that symptoms began at the lower left corner of his mouth and gradually worsened over the course of the previous 2 hours. The patient notes a history of penicillin allergy, but otherwise is not aware of any additional allergies. The patient is present with his who notes that he would occasionally get some mild lip swelling to which he would take Benadryl and the swelling would improve. The patient had taken 50 mg of p.o. Benadryl about an hour and a half prior to arrival. He denies any traumatic injury to the lower lip. He denies difficulty swallowing. He denies tongue swelling. He denies vocal changes. Once again, the patient is present with his who notes that his voice sounds normal. He denies wheezing or other difficulty breathing. There are no rashes. He denies additional clinical concerns. PAST MEDICAL HISTORY: The patient does have a history of hypertension and takes lisinopril and GERD. PAST SURGICAL HISTORY: Past surgical history is significant for right hip and left scapula operative intervention. ALLERGIES: Penicillin. SOCIAL HISTORY: He denies tobacco use, alcohol use, or illicit substance use. REVIEW OF SYSTEMS: Pertinent positives as per HPI. Otherwise, negative. PHYSICAL EXAMINATION: VITAL SIGNS: Temperature 97.6, pulse 81, respiratory rate 18, blood pressure 144/90, oxygen saturation 97% on room air. GENERAL: In general, the patient is awake, alert, and comfortable in appearance in no acute distress. HEENT: Atraumatic and normocephalic. Mucous membranes are moist. Extraocular movements intact. Notable for significant swelling of the lower lip only. Pharyngeal structures and tongue are normal in appearance without obvious swelling. The patient is breathing comfortably. CARDIOVASCULAR: Regular rate and rhythm. No murmurs, rubs, or gallops. PULMONARY: Clear to auscultation bilaterally. No wheezes, rales, or rhonchi. ABDOMEN: Soft, nontender, and nondistended. Bowel sounds are positive. Page 1 of 2 Tanna GUZMAN Emergency Room Report Tanna GUZMAN : 1975 SKIN: Without rash. NEUROLOGIC: No focal sensory or motor deficits. PSYCHIATRIC: Appropriate for age and situation. DIAGNOSTIC DATA: None. MEDICAL DECISION MAKING/EMERGENCY DEPARTMENT COURSE AND TREATMENT: The patient is a 46-year-old male who presents for evaluation of findings consistent with angioedema of the lower lip. The patient has taken lisinopril. The lisinopril may be the causative agent here. He has been on it for 2 to 3 years. No known allergic exposures. I did give the patient 125 mg of IM Solu-Medrol. The patient does express an improvement of about 20% over the course of the roughly 2 to 2-1/2 he was observed here in the emergency department. There was no symptoms affecting the pharyngeal structures of the tongue. The patient remains breathing easily. DIAGNOSIS: Lip swelling, angioedema. PLAN/DISPOSITION: I do feel the patient is a low risk for outpatient followup at this time. I did advise to stop the lisinopril until they talk to their family doctor, Dr. aDmon, for reassessment. I did provide a prescription for 4 days worth of prednisone incase of potential allergic cause. I did recommend returning to the emergency department should the patient develop tongue swelling, vocal changes, difficulty swelling, difficulty breathing, or any additional concerns as this may be the potentially life threatening progression of lisinopril induced angioedema. All of the patient's and 's questions were answered to their satisfaction. They were comfortable with plan for outpatient followup. Condition: Good, improved. Disposition: Home. Dictated By: Brian Alfonso MD 05/30/22 23:49 JOB #: [id number] Transcribed By: am 05/31/22 12:55 Electronically signed by: DR. BRIAN ALFONSO 07/13/22 05:01 Page 2 of 2 Tanna GUZMAN Emergency Room Report Normal [facility] Glucose Glucometer (BldC) [M ass/Vol]Ordered By: Dr. Comer on 06-30-2022 Glucose [Mass/Vol] 87 mg/dL 74-106 [facility] Comment on above: MANAGEMENT OF PATIEN T CARE PER NURSING PROTOCOL No Panel InformationOrdered By: Dr. Comer on 06-24-2022 Nasal Screen MRSA/MSSA [facility] Absolute lymphocyte countOrd ered By: Dr. Comer on 06-23-2022 Lymphocytes Auto (Unsp spec) [#/Vol] 0.63 10*3/uL 0.83-4.51 [facility] Basophil percentageOrdered B y: Dr. Comer on 06-23-2022 Basophils/100 WBC (Bld) 0.7 % 0-1 [facility] Chloride [Moles/Vol] 97 mmol/L 98-107 [facility] Eosinophils/100 WBC (Bld) 0.7 % 0-5 [facility] Glucose [Mass/Vol] 103 mg/dL 74-106 [facility] Comment on above: Fasting Glucose resu lt from 100 to 125 mg/dL suggests IMPAIRED HOMEOSTASIS per A.D.A. criteria. Neutrophils (Bld) [#/Vol] 3.4 10*3/uL 2.0-7.7 [facility] Neutrophils/100 WBC (Bld) 75.3 % 47-70 [facility] Potassium [Moles/Vol] 3.4 mmol/L 3.5-5.1 [facility] Sodium [Moles/Vol] 136 mmol/L 136-145 [facility] WBC (Bld) [#/Vol] 4.5 10*3/uL 4.4-11.0 [facility] Blood erythrocytes count (nu mber/volume)Ordered By: Dr. Comer on 06-23-2022 RBC (Bld) [#/Vol] 5.09 10*6/uL 4.6-6.2 [facility] Blood hemoglobin measurement (mass/volume)Ordered By: Dr. Comer on 06-23-2022 Hemoglobin (Bld) [Mass/Vol] 16.7 g/dL 13.0-16.5 [facility] Blood lymphocytes/100 leukoc ytesOrdered By: Dr. Comer on 06-23-2022 Lymphocytes/100 WBC (Bld) 14.0 % 19-41 [facility] Blood monocytes/100 leukocyt esOrdered By: Dr. Comer on 06-23-2022 Monocytes/100 WBC (Bld) 9.1 % 0-10 [facility] Blood platelet mean volumeOr dered By: Dr. Comer on 06-23-2022 Platelet mean volume (Bld) [Entitic vol] 8.4 fL 6.2-12.0 [facility] Determination of erythrocyte mean corpuscular volume (MCV)Ordered By: Dr. Comer on 06-23-2022 MCV (RBC) [Entitic vol] 93.7 fL 80-94 [facility] Hematocrit Auto (Bld) [Volum e fraction]Ordered By: Dr. Comer on 06-23-2022 Hematocrit (Bld) [Volume fraction] 47.7 % 40-54 [facility] - Chemistry and C hemistry - challengeOrdered By: Dr. Comer on 06-23-2022 CO2 [Moles/Vol] 31.0 mmol/L 21.0-32.0 [facility] Urea nitrogen/Creatinine [Mass ratio] 7.8 mg/mg 10-20 [facility] - Chemistry and C hemistry - challengeOrdered By: Dr. Heath on 06-23-2022 Magnesium [Mass/Vol] 2.3 mg/dL 1.6-2.6 [facility] - Hematology and Cell countsOrdered By: Dr. Comer on 06-23-2022 Erythrocyte distribution width (RBC) [Entitic vol] 42.5 fL 35.1-43.9 [facility] Erythrocyte distribution width (RBC) [Ratio] 12.1 % 11.6-14.6 [facility] Immature granulocytes/100 WBC (Bld) 0.200 % 0.0-0.9 [facility] Comment on above: IG% - Immature Granu locytes (promyelocytes, myelocytes and metamyelocytes) > 1% indicates that a LEFT SHIFT is Present. MCH (RBC) [Entitic mass] 32.8 pg 27.0-32.0 [facility] Nucleated RBC/100 WBC (Bld) [Ratio] 0 % 0-5 [facility] MCHC Auto (RBC) [Mass/Vol]Or dered By: Dr. Comer on 06-23-2022 MCHC (RBC) [Mass/Vol] 35.0 g/dL 32-36 [facility] No Panel InformationOrdered By: Dr. Comer on 06-23-2022 Estimated GFR (MDRD) Amer 100 mL/min >60 [facility] Comment on above: GFR Calc Estimated GFR (MDRD) Non-Af Amer 83 mL/min >60 [facility] Comment on above: Non- GFR Calc Platelets bldOrdered By: Dr. Comer on 06-23-2022 Platelets (Bld) [#/Vol] 159 10*3/uL 150-450 [facility] Serum or plasma albumin sapphire urement (mass/volume)Ordered By: Dr. Comer on 06-23-2022 Albumin [Mass/Vol] 4.1 g/dL 3.2-5.0 [facility] Serum or plasma calcium sapphire urement (mass/volume)Ordered By: Dr. Comer on 06-23-2022 Calcium [Mass/Vol] 10.1 mg/dL 8.5-10.1 [facility] Serum or plasma creatinine m easurement (mass/volume)Ordered By: Dr. Comer on 06-23-2022 Creatinine [Mass/Vol] 1.02 mg/dL 0.70-1.30 [facility] Comment on above: The validity of the calculated GFR & GFRAA in patients over 70 years has not been determined. Clinical correlation is essential. Serum or plasma urea nitroge n measurement (mass/volume)Ordered By: Dr. Comer on 06-23-2022 Urea nitrogen [Mass/Vol] 8 mg/dL 7-18 [facility] Thin prep Papanicolaou smear with manual screeningOrdered By: Dr. Comer on 06-23-2022 Thin prep Papanicolaou smear with manual screening 8 5-15 [facility] No Panel Information Nasal Screen MRSA/MSSA [facility] Work Phone: Vital Signs Date Time Vital Sign Value Performing Clinician Faci lity 10-01-2024 08:11-0400 Body height 175.[address] Winston Damon DO Work Phone: [facility] 10-01-2024 08:11-0400 Body mass index (BMI) [Ratio] 34.7 kg/m2 Dr. Winston Damon DO Work Phone: [facility] 10-01-2024 08:11-0400 Body weight 106.[address] Winston Damon DO Work Phone: [facility] 01-31-2023 13:16-0400 Body height 175.[address] Winston Damon Work Phone: [facility] 01-31-2023 13:16-0400 Body mass index (BMI) [Ratio] 35.8 kg/m2 Dr. Winston Damon Work Phone: [facility] 01-31-2023 13:16-0400 Body weight 109.[address] Winston Damno Work Phone: [facility] 06-30-2022 13:30-0500 Body temperature 99.4 [degF] [facility] 06-30-2022 13:30-0500 Diastolic blood pressure 91 mm[Hg] [facility] 06-30-2022 13:30-0500 Heart rate 95 /min [facility] 06-30-2022 13:30-0500 Respiratory rate 18 /min [facility] 06-30-2022 13:30-0500 SaO2% (BldA) [Mass fraction] 95 % [facility] 06-30-2022 13:30-0500 Systolic blood pressure 158 mm[Hg] [facility] 06-30-2022 11:14-0500 Inhaled oxygen flow rate 4 L/min [facility] 06-30-2022 07:35-0500 Body height 175.26 cm [facility] 06-30-2022 07:35-0500 Body mass index (BMI) [Ratio] 34.4 kg/m2 [facility] 06-30-2022 07:35-0500 Body weight 106 kg [facility] Encounters Encounter Date Encounter Type Care Provider Facility Start: 11-16-2024 End: 11-16-[address] Winston Damon DO Work Phone: [facility] Work Phone: Start: 11-16-2024 End: 11-16-[address] Breanna Ramos DPTimmy -Physical Therapy Work Phone: Start: 10-18-2024 End: 10-18-[address] Winston Damon DO Work Phone: [facility] Work Phone: Start: 10-18-2024 End: 10-18-[address] Breanna Ramos DPM -Physical Therapy Work Phone: Start: 10-18-[address] Breanna Ramos DPM -Physical Therapy Work Phone: Start: 10-01-2024 End: 10-01-[address] Miguel [facility] Work Phone: Start: 10-01-2024 End: 10-01-2024 ambulatory Miguel Angel Uri[place] [place]: 07-16-2024 ambulatory Winston Damon Facility: [facility] Start: 07-05-2024 End: 07-05-2024 ambulatory Jesse Thayer Facility:[facility] Start: 07-05-2024 End: 07-05-2024 ambulatory [facility] Facility:[facility] Start: 07-02-2024 End: 07-02-2024 ambulatory [facility] Facility:[facility] Start: 06-19-2024 End: 06-19-2024 ambulatory [facility] Facility:[facility] Start: 06-13-2024 End: 06-13-2024 ambulatory [facility] Facility:[facility] Start: 06-13-2024 End: 06-13-2024 ambulatory [facility] Facility:[facility] Start: 05-25-2024 End: 05-25-[address] Winston Damon DO Work Phone: [facility] Work Phone: Start: 05-25-2024 End: 05-25-[address] Winston Damon DO -Physical Therapy Work Phone: Start: 03-01-2024 Encounter for genera l adult medical examination without abnormal findings [facility] Start: 02-02-2024 End: 02-02-2024 ambulatory [facility] Facility:[facility] Start: 04-21-2023 End: 04-21-[address] Winston Damon Work Phone: [facility] Work Phone: Start: 04-19-2023 End: 04-19-[address] Winston Damon Work Phone: [facility] Work Phone: Start: 04-19-2023 End: 04-19-[address] Winston Damon Work Phone: [facility] Work Phone: Start: 01-31-2023 End: 01-31-[address] Winston Damon Work Phone: [facility] Work Phone: Start: 07-23-2022 End: 07-23-2022 ambulatory [facility] Work Phone: Start: 07-23-2022 End: 07-23-2022 Discharged Recurring [facility]-Physical Therapy Start: 06-30-2022 End: 06-30-2022 Admission to same day surgery center [facility] Start: 06-30-2022 End: 06-30-2022 ambulatory [facility] Work Phone: Start: 05-30-2022 End: 05-31-2022 Emergency department patient visit WINSTON DAMON [facility] Procedures Date Procedure Procedure Detail Performing Clinician Start: 04-19-2023 MRI of joint of lowe r extremity Dr. Winston Damon Work Phone: Start: 04-19-2023 X-ray of eye for for eign body Dr. Winston Damon Work Phone: Start: 01-31-2023 Plain X-ray of shoulder Dr. Winston Damon Work Phone: Start: 06-30-2022 Plain X-ray of hip Start: 06-30-2022 Fluoroscopic guidance Start: 06-30-2022 Plain x-ray of pelvi s and lower extremity Start: 06-30-2022 Total replacement of hip Nasal Screen MRSA/MSSA Nasal Screen MRSA/MSSA Plan of Treatment Date Care Activity Detail Author Start: 06-30-2022 Anesthesia open total hip arthroplasty ANESTH HIP ARTHROPLASTY [facility] Start: 06-30-2022 Arthrp acetblr/prox fem prostc agrft/algrft TOTAL HIP ARTHROPLASTY [facility] Start: 06-30-2022 Application of ice collar, cap or bag [facility] Start: 06-30-2022 Exercises [facility] Start: 06-30-2022 Incentive spirometry [facility] Start: 06-30-2022 Neurovascular assessment [facility] Start: 06-30-2022 End: 06-30-2022 Patient discharge [facility] Start: 06-30-2022 Patient education [facility] Start: 06-30-2022 Provision of activity privileges [facility] Start: 06-30-2022 Referral to service [facility] Start: 06-30-2022 Vital signs measurements [facility] Start: 06-30-2022 Wound care [facility] Start: 06-30-2022 [facility] Electrocardiographic procedure [facility] Work Phone: Electrocardiographic procedure [facility] Patient referral [facility] Work Phone: Immunizations Immunization Date Immunization Notes Care Provider Fa cility 07-31-2020 tetanus toxoid, redu vesta diphtheria toxoid, and acellular pertussis vaccine, adsorbed [facility] Payers Date Payer Category Payer Self-pay [id number] 2023 Unknown [id number] 1975 Unknown [id number] 2.16.84 [id number] Unknown [id number] Unknown [id number] 2.16.8 [id number] Unknown [id number] 2.16.8 [id number] Unknown [id number] 2.16.8 [id number] Unknown [id number] 2.16.8 [id number] Unknown [id number] 2.16.8 [id number] Unknown [id number] 2.16.8 [id number] Unknown [id number] 2.16.8 [id number] Unknown [id number] 2.16.8 [id number] Unknown [id number] 2.16.8 [id number] Unknown [id number] 2.16.8 [id number] Unknown [id number] 2.16.8 [id number] Unknown [id number] 2.16.8 [id number] Unknown [id number] 2.16.8 [id number] Social History Date Type Detail Facility Start: 06-22-2022 End: 04-21-2023 Tobacco smoking status MDIS Unknown if ever smoked [facility] Start: 07-31-2020 Non-smoker [facility] Start: 1975 Sex Assigned At Male [facility] Start: 05-31-2024 Tobacco smoking stat us MDIS Never smoked tobacco (finding) [facility] Medical Equipment Procedure Code Equipment Code Equipment Origin al Text Equipment Identifier Dates Minimally 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 127 DEGREE HIP STEM FDA Start: 03-05-2020 Minimally 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 ACETABULAR SHELL FDA Start: 03-05-2020 Minimally 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 POLY INSERT FDA Start: 03-05-2020 Minimally 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 V40 FEMORAL HEAD FDA Start: 03-05-2020 Minimally 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 127 DEGREE HIP STEM FDA Start: 03-05-2020 Minimally 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 ACETABULAR SHELL FDA Start: 03-05-2020 Minimally 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 POLY INSERT FDA Start: 03-05-2020 Minimally 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 V40 FEMORAL HEAD FDA Start: 03-05-2020 Minimally 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 ([id number]) Ceramic femoral head prosthesis [id number] FDA Start: 06-30-2022 Minimally 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 ([id number]) Coated hip femur prosthesis, modular [id number] FDA Start: 06-30-2022 Minimally 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 ([id number]) Non-constrained polyethylene acetabular liner [id number] FDA Start: 06-30-2022 Minimally 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 ([id number]) Acetabular shell ()[id number] FDA Start: 06-30-2022 Minimally 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 127 DEGREE HIP STEM FDA Start: 03-05-2020 Minimally 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 ACETABULAR SHELL FDA Start: 03-05-2020 Minimally 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 POLY INSERT FDA Start: 03-05-2020 Minimally 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 V40 FEMORAL HEAD FDA Start: 03-05-2020 Minimally 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 127 DEGREE HIP STEM FDA Start: 03-05-2020 Minimally 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 ACETABULAR SHELL FDA Start: 03-05-2020 Minimally 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 POLY INSERT FDA Start: 03-05-2020 Minimally 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 V40 FEMORAL HEAD FDA Start: 03-05-2020 Minimally 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 127 DEGREE HIP STEM FDA Start: 03-05-2020 Minimally 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 ACETABULAR SHELL FDA Start: 03-05-2020 Minimally 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 POLY INSERT FDA Start: 03-05-2020 Minimally 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 V40 FEMORAL HEAD FDA Start: 03-05-2020 Minimally 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 127 DEGREE HIP STEM FDA Start: 03-05-2020 Minimally 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 ACETABULAR SHELL FDA Start: 03-05-2020 Minimally 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 POLY INSERT FDA Start: 03-05-2020 Minimally 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 [place] [address] / REHABILITATION SERVICES DISCHARGE SUMMARY MR#: [id number] Acct: [id number] Name: NIRU GUZMAN Rep #: [id number] 1 : 1975 49 From: Darnell Rawls PT, ATC Referring Dr.: JENNIFER Ramos Status: REG RCR Insurance: [email or web address]/[facility] SELF PAY INSURANCE Discharge Summary D/C summary: It has been my pleasure to treat NIRU GUZMAN referred by Dr. Breanna Ramos, JENNIFER, with the diagnosis of Metatarsalgia for a total of 2 visit(s). Discharge Date: Please see the following information for a summary of their discharge status. Subjective Subjective: Pt reports he is ready for orthotics Pain B feet: Pain Intensity (Out of 10): 0 Objective Objective/Function: Orthotics fit to shoes Goals Goal 1:: Properly fit pt for orthotics and educate pt on orthotic and skin care Plan Plan: Discharge D/C Information d/c sentence: If there are questions or concerns regarding this patient's physical therapy, please feel free to call me at [phone]. Thank you for the referral of thispatient. Sincerely, Darnell Rawls, PT, ATC <Electronically signed by Darnell Rawls PT, ATC> 11/16/24 1501 CC: JENNIFER Ramos; Dr. Winston Damon, DO ~ [facility] Signed [facility] Work Phone: Discharge summary 11-16-2024 Note Date & Type Note Facility 11-16-2024 Discharge summary [facility] Evaluation note 10-01-2024 Note Date & Type Note Facility 10-01-2024 Evaluation note Diagnosis Onset Date Resolution Right rotator cuff tear acute A pril 2024 8:11am Rupture of right subscapularis tendon acute October 01, 2024 8:11am [facility] Work Phone: Discharge summary 07-23-2022 Note Date & Type Note Facility 07-23-2022 Discharge summary Note Date/Time July 23, 2022 8:54am [facility] Physical Therapy [facility] [address] [place] [address] / REHABILITATION SERVICES DISCHARGE SUMMARY MR#: [id number] Acct: [id number] Name: NIRU GUZMAN Rep #: [id number] 5 : 1975 47 From: Darnell Rawls PT, ATC Referring Dr.: ADAM Carr Status: REG RCR Insurance: [email or web address]/[facility] SELF PAY INSURANCE It has been my pleasure to treat NIRU GUZMAN referred by ADAM Cervantes, with the diagnosis of L DEDE for a total of 5 visit(s). Discharge Date: Please see the following information for a summary of their discharge status. Subjective: I am ready to be done L hip Pain Intensity (Out of 10): 1 Objective/Function: L hip pain is 1/10. L hip strength is 30 #F throughout. L hip ROM: flex= 90, ext= 10. Pt is I with stairs and has no limitations with ambulation at this time. Pt is I with HEP Goal 1:: LTG: Pt. to be I with HEP. Goal Progress: Goal Met Goal 2:: STG: Pt. to sleep throughout the night without increase in symptoms. Goal Progress: Goal Met Goal 3:: LTG: Pt. to ambulate without AD with normal step length for at least 1000' without increase in symptoms. Goal Progress: Goal Met Goal 4:: LTG: Pt. to have increased LLE strength symmetrical to R side without increase in symptoms. Goal Progress: Goal Met Goal 5:: LTG: Pt. to complete TUG with time less than 8 seconds without use of AD. Goal Progress: Goal Met Goal 6:: LTG: Pt. to negotiate stairs with reciprocal pattern with 1 HR without increase in symptoms. Goal Progress: Goal Met Plan: Discharge to HEP If there are questions or concerns regarding this patient's physical therapy, please feel free to call me at [phone]. Thank you for the referral of thispatient. Sincerely, Darnell M Hartzler, PT, ATC Balance/Gait/Functional tests - Balance/Special Test Scores Lower Extremity Functional Score: 62 TUG Test Time Seconds: 19.1 Tug Test: <20 sec.=mostly independent <Electronically signed by Darnell Rawls PT, ATC> 07/23/22 0854 CC: ADAM Carr; Dr. Winston Damon, DO ~ [facility] Signed [facility] Work Phone: Hospital Discharge instructions 06-23-2022 Note Date & Type Note Facility 06-23-2022 Hospital Discharg e instructions Ambulatory [id number] Lead EKG [[facility]] Time Frame: 06/23/22, Location: None Selected Additional Instructions Implant Used?: Yes [facility] Work Phone: Evaluation note Note Date & Type Note Facility Evaluation note No assessment information availa ble [facility] Work Phone: Evaluation note Note Date & Type Note Facility Evaluation note Diagnosis Onset Date Left shoulder pain acute Right shoulder pain acute Rupture of left long head biceps tendon acute Left shoulder pain acute Rupture of left long head biceps tendon acute [facility] Work Phone: Reason for referral (narrative) Note Date & Type Note Facility Reason for referral (narrative) No reason for referral information available [facility] Work Phone: Chief Complaint and Reason for Visit Chief Complaint Admit Date RIGHT SHOULDER October 01, 2024 8:11 am ORTHOTICS . RX W/ PT November 16, 2024 2:30 pm Reason for Visit Admit Date Right rotator cuff tear October 01, 2024 8:11am Rupture of right subscapularis tendon Ap 2024 8:11am Chief Complaint LT TOTAL HIP ANTERIO R APPROACH Chief Complaint LT TOTAL HIP ANTERIO R APPROACH LT DEDE. DR ANDREW BATISTA Chief Complaint left bicep RM 4 LT SHOULDER INJURY LEFT BICEP Reason for Visit Left shoulder pain Right shoulder pain Rupture of left long head biceps tendon Left shoulder pain Rupture of left long head biceps tendon Chief Complaint Admit Date RIGHT SHOULDER October 01, 2024 8:11 am ORTHOTICS . RX W/ PT October 18, 2024 12 :47pm Advance Directives No Advanced Directives Records Found Advance Directive Response Recorded Date/ Time Living Will No June 22, 022 12:57pm Power of Stage Technician No June 22, 2022 12:57pm Advance Directive Response Recorded Date/ Time Living Will No June 22 1:57pm Power of Stage Technician No June 22, 2022 1:57pm Summary Purpose Family History No Family History Records Found Relationship Condition Age at Onset Recorded Date/T sarai mother Cardiac disease Unknown Hypertension Unknown Hypercholesterolemia Unknown father Alcoholism Unknown brother Malignant neoplasm of colon Unknown sister Hypertension Unknown grandmother Hypertension Unknown Disorder of thyroid Unknown grandfather Malignant neoplasm of colon Unknown Additional Source Comments (unrecognized sect ion and content) No Status Records FoundNo Status Records Found INFORMATION SOURCE (unrecogn ized section and content) DATE CREATED AUTHOR 07/13/2022 [facility] DATE CREATED AUTHOR AUTHOR'S ORGANIZ ATION 11/22/2024 [facility] Care Teams (unrecognized sec tion and content) Team Status: Active Member Role Status Dates Dr. Winston Damon DO Family Provider Active Dr. Winston Damon DO Primary Care Provider Active Team Status: Inactive Member Role Status Dates Dr. Winston Damon DO Primary Care Provider Active Dr. Walt Comer MD Attending Provider, Referring P rovider Active Dr. Tien Heath MD Other Provider Active Team Status: Inactive Member Role Status Dates Dr. Winston Damon DO Primary Care Provider Active ADAM Cervantes Attending Provider, Referring Provide r Active Team Status: Inactive Member Role Status Dates Dr. Winston Damon DO Primary Care Provider, Referrin g Provider Active Miguel Angel Urias MD Attending Provider Active Team Status: Inactive Member Role Status Dates Dr. Winston Damon DO Primary Care Provider Active Dr. Jesse Thayer MD Attending Provider Active Team Status: Inactive Member Role Status Dates Dr. Winston Damon DO Primary Care Provider Active Miguel Angel Urias MD Attending Provider, Referring Prov ider Active Team Status: Active Member Role Status Dates Dr. Winston Damon DO Primary Care Provider Active Team Status: Inactive Member Role Status Dates Dr. Winston Damon DO Primary Care Provider Active Start: October 01, 2024 End: October 01, 2024 Dr. Winston Damon DO Referring Provider Active Start: October 01, 2024 End: October 01, 2024 Miguel Angel Urias MD Attending Provider Active St art: October 01, 2024 End: October 01, 2024 Team Status: Active Member Role Status Dates Dr. Winston Damon DO Primary Care Provider Active Start: October 18, 2024 Dr. Breanna Ramos DPM Attending Provider Active Start: October 18, 2024 Dr. Breanna Ramos DPM Referring Provider Active Start: October 18, 2024 Team Status: Inactive Member Role Status Dates Dr. Winston Damon DO Primary Care Provider Active Start: October 18, 2024 End: October 18, 2024 Dr. Breanna Ramos DPM Attending Provider Active Start: October 18, 2024 End: October 18, 2024 Dr. Breanna Ramos DPM Referring Provider Active Start: October 18, 2024 End: October 18, 2024 Team Status: Inactive Member Role Status Dates Dr. Winston Damon DO Primary Care Provider Active Start: November 16, 2024 End: November 16, 2024 Dr. Breanna Ramos DPM Attending Provider Active Start: November 16, 2024 End: November 16, 2024 Dr. Breanna Ramos DPM Referring Provider Active Start: November 16, 2024 End: November 16, 2024 Goals (unrecognized section and content) Goals may be documented in a n alternate sectionGoals may be documented in an alternate sectionGoals may be documented in an alternate sectionGoals may be documented in an alternate section FOR RECORDS PERTAINING TO PATIENTS WHO ARE OR HAVE BEEN ENROLLED IN A CHEMICAL DEPENDENCY/SUBSTANCEABUSE PROGRAM, SOME INFORMATION MAY BE OMITTED. This clinical summary was aggregated from multiple sources. Caution should be exercised in using it in the provision of clinical care. This summary normalizes information from multiple sources, and as a consequence, information in this document may materially change the coding, format and clinical context of patient data. In addition, data may be omitted in some cases. CLINICAL DECISIONS SHOULD BE BASED ON THE PRIMARY CLINICAL RECORDS. [employer] provides no warranty or guarantee of the accuracy or completeness of information in this document.
--- NOTE | 2024-12-12 09:39 | CA.SCORE ---
Calcium Scoring Date of Study:: 12/12/24 Indications Indications: Syncope Coronary Calcium Scoring: High-resolution Computed Tomographic imaging of the chest was performed on [12/12/2024], with particular attention paid to the coronary arteries. Images from the examination were analyzed for the presence and extent of coronary artery calcification , using coronary calcium quantification software. The patient tolerated the procedure well and there were no complications. The results of the coronary calcification analysis are provided below. Findings Coronary Artery Left Main (LM): 0 Left Anterior Descending (LAD): 349 Left Circumflex (LCX): 0 Right Coronary Artery (RCA): 109 Total Agatston Score: 458 Percentile Ranking: Greater than 90th percentile Calcium Scoring Interpretation: Different methods to categorize the overall amount of coronary plaque. Overall amount CAC SIS Visual of coronary plaque P1 Mild -100 <2 1-2 vessels with mild amount of plaque P2 Moderate 101-300 3-4 1-2 vessels with moderate amount, 3 vessels with mild amount of plaque P3 Severe 301-999 5-7 3 vessels with moderate amount, 1 vessel with severe amount of plaque P4 Extensive >1000 >8 2-3 vessels with severe amount of plaque Conclusion: 1 vessel with moderately severe amount of plaque in another vessel with mild plaque.
== END 2024-12-12 23:59 | disposition home or self-care (01) ==
PROVIDERS: PCP Family Medicine; Referring Provider Internal Medicine Cardiovascular Disease; Visit Provider Internal Medicine Cardiovascular Disease
DX: I10 Essential (primary) hypertension (principal); I25.10 Atherosclerotic heart disease of native coronary artery without angina pectoris
CPT/HCPCS: 75571; 76380

== ENCOUNTER → 2025-05-10 | Outpatient (CLI) | payer OTHER, SELFPAY ==
[2025-05-10 08:24] LABS: Hematocrit 45.9 % (40-54); Hemoglobin 16.4 g/dL (13.0-16.5); Immature Granulocytes Count 0.010 X10^3/uL (0.0-0.0); Mean Corp Hgb Conc 35.7 g/dL (32-36); Mean Corpuscular Volume 87.3 fL (80-94); Mean Platelet Vol. 8.9 fl (6.2-12.0); NRBC Flagged by Analyzer 0 % (0-5); Platelet Count 249 K/mm3 (150-450); RBC Distribution Width CV 12.2 % (11.6-14.6); RBC Distribution Width SD 39.5 fl (35.1-43.9); Red Blood Count 5.26 M/mm3 (4.6-6.2); White Blood Count 5.1 K/mm3 (4.4-11.0)
[2025-05-10 09:11] LABS: AST(SGOT) 23 U/L (<=37); Alanine Aminotransfer ALT/SGPT 25 U/L (<=46); Albumin, Serum 4.3 g/dL (3.5-5.0); Alkaline Phosphatase 87 U/L (40-129); Anion Gap 9 (5-15); BUN 7 mg/dL (4-19); BUN/Creat Ratio 9.0 RATIO (10-20); Calcium,Total 9.3 mg/dL (7.6-11.0); Carbon Dioxide 32.0 mmol/L (21.0-32.0); Chloride 97 mmol/L (98-108); Cholesterol 151 mg/dL (<=200); Globulin 3.0 g/dL (2.2-4.2); Glucose 104 mg/dL (70-99); Low Density Lipoprotein Calc. 93 mg/dL; PSA,Total - Annual Screen 0.98 ng/mL (0.02-4.00); Potassium 3.4 mmol/L (3.3-5.1); Triglycerides 78 mg/dL; Very Low Density Lipoprotein 16 mg/dL (5-40); cholesterol:hdl ratio screen 3.54
== END | disposition home or self-care (01) ==
LOC: LAB 07:39
PROVIDERS: PCP Family Medicine; Referring Provider Family Medicine; Visit Provider Family Medicine
DX: Z00.00 Encounter for general adult medical examination without abnormal findings (principal); Z12.5 Encounter for screening for malignant neoplasm of prostate
CPT/HCPCS: 36415; 80053; 80061; 84153; 85025; G0103